=== PATIENT | male | born 1970 | race Caucasian/White ===

== ENCOUNTER 2019-01-28 11:25 | Emergency (ER) | payer OTHER ==
[2019-01-28] MEDS ORDERED: SODIUM CHLORIDE 0.9% 1,000 ML IV STA (11:56)
--- NOTE | 2019-01-28 12:05 | ED ---
Abdominal Pain HPI - General Chief Complaint: Abdominal Pain Stated Complaint: diarrhea Time Seen by Provider: 01/28/19 11:37 Source: patient Mode of arrival: ambulatory Limitations: no limitations - History of Present Illness Initial Comments: Patient is a 48-year-old male presents emergency Department with diarrhea for 3 days. Patient reports the diarrhea started after eating steak which was cooked rare to medium rare. Patient reports midline dull suprapubic pain, that is colicky in nature and rates it at 2-3. Patient states the pain does not radiate anywhere. Patient reports that couple hours after eating the same pain becomes an 8 and Sharp. Patient reports when the pain becomes an 8 he needs to go to the bathroom and has diarrhea. Patient reports after the episode of diarrhea the pain subsides. Patient denies nausea, vomiting, dysuria, increased urgency or frequency. Patient denies hematochezia, melena or hematuria. Patient denies fever, shortness of breath, chest pain and chest tightness or headaches. Patient reports mild low back pain but states that is chronic. Patient denies flank pain. Patient denies taking any medication to alleviate the symptoms. Patient denies testicular pain, penile pain or discharge. - Related Data Previous Rx's Medication Instructions Recorded Loperamide [Imodium] 2 mg PO BID #15 capsule 01/28/19 Allergies Allergy/AdvReac Type Severity Reaction Status Date / Time No Known Allergies Allergy Verified 01/28/19 11:33 Review of Systems ROS Statement: Those systems with pertinent positive or pertinent negative responses have been documented in the HPI. ROS Other: All systems not noted in ROS Statement are negative. Past Medical History Past Medical History: Thyroid Disorder History of Any Multi-Drug Resistant Organisms: None Reported Past Surgical History: No Surgical Hx Reported Past Psychological History: No Psychological Hx Reported Smoking Status: Never smoker Past Alcohol Use History: Occasional Past Drug Use History: Marijuana General Exam - General Exam Comments Initial Comments: General: Well-developed well-nourished distress HEENT: Normocephalic/atraumatic, PERLL, EAC no erythema, no exudates, TM clear, no cervical lymph nodes Neck: Supple, nontender, trachea midline Chest/Lungs: Normal respirations, no signs of respiratory distress clear to auscultation bilaterally no wheezes, rales, rhonchi Cardiac: Regular rate and rhythm, normal S1-S2, no murmurs rubs or gallops Abdomen/GI: Soft nontender, bowel sounds equal or quadrant x4, no guarding, no rebound no CVA tenderness, negative McBurney point tenderness negative Jaramillo sign, negative Rovsing or psoas sign, mid suprapubic pain exacerbated with palpation. Musculoskeletal: Nontender, full range of motion, no edema, strength equal bilaterally Skin: Warmth, no rashes or lesions, no cyanosis or diaphoresis Neurologic: AAO x 3, CN 2-12 intact, Psychiatric: Mood and affect normal, judgment normal Limitations: no limitations Course Vital Signs 01/28/19 11:31 Temperature 98.2 F Pulse Rate 80 Respiratory 20 Rate Blood Pressure 143/89 O2 Sat by Pulse 97 Oximetry Medical Decision Making - Medical Decision Making Patient is a 48-year-old male presents emergency department for 3 days of diarrhea. X-ray is suggestive of nonspecific gas pattern. Patient was given 1 L of fluids. Patient will prescribe Lomotil. Based on history and physical examination I suspect the patient to have colitis and no antibiotics are necessary at this moment because it has been only 3 days. Labs are unremarkable except patient appears to be hyperglycemic. Patient has not been diagnosed with diabetes but does have family history of it. Patient reports that he had popped a few times throughout the day before coming to the emergency department. Patient advised to follow-up with the on-call family physicians, [facility] and attempt to obtain Medicare. Strict return parameters were thoroughly discussed with patient and were understandable and agreement. Patient advised to follow a BRAT diet. Patient advised not to eat late at night or spicy food. Case discussed with Dr. Decker who is in agreement with the treatment plan. - Lab Data Result diagrams: 01/28/19 12:06 01/28/19 12:06 Lab Results 01/28/19 01/28/19 01/28/19 Range/Units 12:06 12:06 12:17 WBC 8.4 (3.8-10.6) k/uL RBC 5.82 (4.30-5.90) m/uL Hgb 15.9 (13.0-17.5) gm/dL Hct 46.8 (39.0-53.0) % MCV 80.5 (80.0-100.0) fL MCH 27.3 (25.0-35.0) pg MCHC 33.9 (31.0-37.0) g/dL RDW 14.4 (11.5-15.5) % Plt Count 279 (150-450) k/uL Neutrophils % 63 % Lymphocytes % 28 % Monocytes % 6 % Eosinophils % 1 % Basophils % 0 % Neutrophils # 5.3 (1.3-7.7) k/uL Lymphocytes # 2.4 (1.0-4.8) k/uL Monocytes # 0.5 (0-1.0) k/uL Eosinophils # 0.1 (0-0.7) k/uL Basophils # 0.0 (0-0.2) k/uL Sodium 138 (137-145) mmol/L Potassium 4.4 (3.5-5.1) mmol/L Chloride 107 (98-107) mmol/L Carbon Dioxide 20 L (22-30) mmol/L Anion Gap 11 mmol/L BUN 8 L (9-20) mg/dL Creatinine 0.54 L (0.66-1.25) mg/dL Est GFR (CKD-EPI)AfAm >90 (>60 ml/min/1.73 sqM) Est GFR (CKD-EPI)NonAf >90 (>60 ml/min/1.73 sqM) Glucose 296 H (74-99) mg/dL Calcium 9.5 (8.4-10.2) mg/dL Total Bilirubin 0.8 (0.2-1.3) mg/dL AST 22 (17-59) U/L ALT 37 (21-72) U/L Alkaline Phosphatase 74 (38-126) U/L Total Protein 7.2 (6.3-8.2) g/dL Albumin 4.3 (3.5-5.0) g/dL Amylase 35 (30-110) U/L Lipase 89 (23-300) U/L Urine Color Yellow Urine Appearance Clear (Clear) Urine pH 5.0 (5.0-8.0) Ur Specific Adrian 1.030 (1.001-1.035) Urine Protein Trace H (Negative) Urine Glucose (UA) 4+ H (Negative) Urine Ketones Negative (Negative) Urine Blood Negative (Negative) Urine Nitrite Negative (Negative) Urine Bilirubin Negative (Negative) Urine Urobilinogen <2.0 (<2.0) mg/dL Ur Leukocyte Esterase Negative (Negative) Disposition Clinical Impression: Diarrhea Disposition: HOME SELF-CARE Condition: Stable Instructions (If sedation given, give patient instructions): Loperamide (By mouth), Colitis (ED) Additional Instructions: Please take prescribed medication as directed. Eat a BRAT diet. Please follow up with primary care. Please return to emergency department if symptoms worsen. Is patient prescribed a controlled substance at d/c from ED?: No Referrals: None,Stated [Primary Care Provider] - 1-2 days Judit Durham MD [STAFF PHYSICIAN] - 1-2 days Roberto Kennedy MD [Medical Doctor] - 1-2 days Time of Disposition: 13:26
--- NOTE | 2019-01-28 12:31 | XR ---
EXAMINATION TYPE: XR KUB DATE OF EXAM: 01/28/2019 COMPARISON: NONE HISTORY: Pain TECHNIQUE: One view abdominal series FINDINGS: The osseous structures are intact. The bowel gas pattern is nonspecific. Lung bases are clear. Hype rtrophic change of the vertebral column. Calcification the pelvis likely vascular. IMPRESSION: 1. Nonspecific abdomen.
[2019-01-28 12:35] LABS: ALT 37 U/L (21-72); AST 22 U/L (17-59); African American GFR (CKD) >90 (>60 ml/min/1.73 sqM); Albumin 4.3 g/dL (3.5-5.0); Alkaline Phosphatase 74 U/L (38-126); Amylase 35 U/L (30-110); Anion Gap 11 mmol/L; Blood Urea Nitrogen 8 mg/dL (9-20); Calcium 9.5 mg/dL (8.4-10.2); Carbon Dioxide 20 mmol/L (22-30); Chloride 107 mmol/L (98-107); Glucose 296 mg/dL (74-99); Lipase 89 U/L (23-300); Potassium 4.4 mmol/L (3.5-5.1); Sodium 138 mmol/L (137-145); Total Bilirubin 0.8 mg/dL (0.2-1.3); Total Protein 7.2 g/dL (6.3-8.2)
[2019-01-28 12:37] LABS: Basophils % (A) 0 %; Eosinophils # (A) 0.1 k/uL (0-0.7); Eosinophils % (A) 1 %; HCT 46.8 % (39.0-53.0); HGB 15.9 gm/dL (13.0-17.5); Lymphocytes # (A) 2.4 k/uL (1.0-4.8); Lymphocytes % (A) 28 %; MCH 27.3 pg (25.0-35.0); MCHC 33.9 g/dL (31.0-37.0); MCV 80.5 fL (80.0-100.0); Mean Platelet Volume 7.6; Monocytes # (A) 0.5 k/uL (0-1.0); Monocytes % (A) 6 %; Neutrophils # (A) 5.3 k/uL (1.3-7.7); Neutrophils % (A) 63 %; Platelet Count 279 k/uL (150-450); RBC 5.82 m/uL (4.30-5.90); RDW 14.4 % (11.5-15.5); WBC 8.4 k/uL (3.8-10.6)
[2019-01-28 12:43] LABS: Appearance,Urine Clear (Clear); Bilirubin,Urine Negative (Negative); Blood,Urine Negative (Negative); Color,Urine Yellow; Glucose,Urine (UA) 4+ (Negative); Ketones,Urine Negative (Negative); Leukocyte Esterase,Urine Negative (Negative); Nitrite,Urine Negative (Negative); Protein,Urine Trace (Negative); Urobilinogen,Urine <2.0 mg/dL (<2.0)
[2019-01-28 14:18] VITALS: BP 137/87; PULSE 68; RESP 18; TEMP 98.4
== END 2019-01-28 14:18 | disposition home or self-care (01) ==
LOC: EC 11:25
DX: R19.7 Diarrhea, unspecified (principal); R10.30 Lower abdominal pain, unspecified; M54.5 Low back pain; R73.9 Hyperglycemia, unspecified
CPT/HCPCS: 36415; 74018; 80053; 81003; 82150; 83690; 85025; 96360; 96361; 99284

== ENCOUNTER 2020-12-24 06:32 | Day surgery (SDC) | payer OTHER ==
[2020-12-19 14:58] VITALS: BMI 39.5
[~2020-12-24 06:32] MED LIST: LACTATED RINGERS 1,000 ML IV SCH
[2020-12-24 07:08] VITALS: RESP 16; TEMP 96.8
[2020-12-24 07:08] LABS: Glucose,Whole Blood 172 mg/dL (75-99)
[2020-12-24] MEDS ORDERED: PHENYLEPHRINE-0.9% NACL SYG 1,000 MCG/10 ML SYRINGE ONE (07:41)
[2020-12-24] MEDS ORDERED: PROPOFOL 10 MG/ML 20 ML VIAL IV ONE (07:41)
--- NOTE | 2020-12-24 08:14 | P.PCN ---
Date of Procedure: 12/24/20 Description of Procedure: BRIEF HISTORY: Patient is a 50-year-old male presenting for outpatient colonoscopy for screening for malignant neoplasm of the colon. No prior colonoscopies. No abdominal pain or blood per rectum but he does report a large amount of gas which began after he was initiated on metformin therapy and is continued after the medication was discontinued. PROCEDURE PERFORMED: Colonoscopy with polypectomy. PREOPERATIVE DIAGNOSIS: Screening for malignant neoplasm of the colon, no prior colonoscopy. ESTIMATED BLOOD LOSS: Minimal. IV sedation per Anesthesia. PROCEDURE: After informed consent was obtained, the patient, was brought into the endoscopy unit. IV sedation was administered by Anesthesia under continuous monitoring. Digital rectal examination was normal. Initially the Olympus CF-190 flexible video colonoscope was then inserted in the rectum, gradually advanced into the cecum without any difficulty. Careful examination was performed as the scope was gradually being withdrawn. Ileocecal valve and the appendiceal orifice were visualized and appeared normal. Prep was good. Mucosa of the cecum, ascending colon, transverse colon, descending colon, sigmoid colon, and rectum appeared normal. Cold snare polypectomy of sessile polyps measuring 11 mm in size from the ileocecal valve and 7 mm in size from the ascending colon. Diminutive polyps removed with cold forcep polypectomy from the splenic flexure 2 and rectum. Retroflexion was performed in the rectum and no lesions were seen, low- grade internal hemorrhoids. The patient tolerated the procedure well. IMPRESSION: Cold snare polypectomy of polyps from the ileocecal valve and ascending colon. 3 diminutive polyps removed with cold forcep polypectomy from the rectum and splenic flexure 2. Internal hemorrhoids. RECOMMENDATIONS: Findings of this examination were discussed with the patient and his family. Okay to resume diet. Okay to resume medication. Await pathology from polypectomies. Recommend repeat colonoscopy in 3 years pending pathology from polypectomies.
[2020-12-24 08:35] VITALS: BP 149/76; PULSE 68
== END 2020-12-24 09:03 | disposition home or self-care (01) ==
LOC: ORWHC2ENDO 06:32
PROVIDERS: ATTEND Internal Medicine
DX: Z12.11 Encounter for screening for malignant neoplasm of colon (principal); D12.2 Benign neoplasm of ascending colon; D12.0 Benign neoplasm of cecum; D12.3 Benign neoplasm of transverse colon; D12.8 Benign neoplasm of rectum; I10 Essential (primary) hypertension; E78.5 Hyperlipidemia, unspecified; E11.9 Type 2 diabetes mellitus without complications; E07.9 Disorder of thyroid, unspecified; K21.9 Gastro-esophageal reflux disease without esophagitis; Z79.84 Long term (current) use of oral hypoglycemic drugs; Z79.890 Hormone replacement therapy; Z79.899 Other long term (current) drug therapy
CPT/HCPCS: 45380; 45385; J2370; J2704; 88305

== ENCOUNTER 2021-05-24 11:01 | Emergency (ER) | payer OTHER ==
[2021-05-24 11:09] VITALS: BP 133/81; PULSE 82; RESP 18; TEMP 98.8
--- NOTE | 2021-05-24 11:41 | ED ---
URI HPI - General Chief Complaint: Upper Respiratory Infection Stated Complaint: Cough,Lower Back Pain Time Seen by Provider: 05/24/21 11:13 Source: patient, RN notes reviewed Mode of arrival: ambulatory Limitations: no limitations - History of Present Illness Initial Comments: Patient is a 51-year-old male with history of diabetes, hypertension, presenting to emergency Department with complaints of a cough, headache, body aches and lower back pain that started yesterday. He states this seemed to start her out of the blue. He denies any chest pain or shortness of breath, he has been taking NyQuil and DayQuil for a cough which does seem to help a little bit. He did take some Motrin this morning as he usually takes it for body aches. He denies history of asthma or COPD, is a nonsmoker. He denies any recent sick contacts. He has been fully vaccinated against Covid. He has no further complaints. His vitals are stable upon arrival. - Related Data Home Medications Medication Instructions Recorded Confirmed Aspirin [Adult Low Dose Aspirin EC] 81 mg PO DAILY 12/19/20 12/19/20 Empagliflozin [Jardiance] 25 mg PO DAILY 12/19/20 12/24/20 Ibuprofen [Motrin] 800 mg PO BID 12/19/20 12/24/20 Levothyroxine Sodium [Synthroid] 175 mcg PO DAILY 12/19/20 12/24/20 Omeprazole 20 mg PO DAILY 12/19/20 12/24/20 Rosuvastatin [Crestor] 10 mg PO HS 12/19/20 12/24/20 glipiZIDE [Glucotrol] 5 mg PO AC-BID 12/19/20 12/24/20 lisinopriL [Zestril] 10 mg PO DAILY 12/19/20 12/24/20 Previous Rx's Medication Instructions Recorded predniSONE [Deltasone] 20 mg PO BID 5 Days #10 tab 05/24/21 Allergies Allergy/AdvReac Type Severity Reaction Status Date / Time No Known Allergies Allergy Verified 05/24/21 11:09 Review of Systems ROS Statement: Those systems with pertinent positive or pertinent negative responses have been documented in the HPI. ROS Other: All systems not noted in ROS Statement are negative. Past Medical History Past Medical History: Diabetes Mellitus, GERD/Reflux, Hyperlipidemia, Hypertension, Thyroid Disorder History of Any Multi-Drug Resistant Organisms: None Reported Past Surgical History: Orthopedic Surgery Additional Past Surgical History / Comment(s): LT THUMB REPAIR/REATTACHMENT. RECONSTRUCTION LT ANKLE TENDONS. RT KNUCKLE REMOVED R/T INJURY Past Anesthesia/Blood Transfusion Reactions: No Reported Reaction Past Psychological History: No Psychological Hx Reported Smoking Status: Never smoker Past Alcohol Use History: None Reported Past Drug Use History: Marijuana - Past Family History Mother Family Medical History: No Reported History General Exam - General Exam Comments Initial Comments: GENERAL: Patient is well-developed and well-nourished. Patient is nontoxic and in no acute distress. HEAD: Atraumatic, normocephalic. EYES: Pupils equal round and reactive to light, extraocular movements intact, sclera anicteric, conjunctiva are normal. Eyelids were unremarkable. ENT: Nares patent, oropharynx clear without exudates. Moist mucous membranes. NECK: Normal range of motion, supple without lymphadenopathy or JVD. LUNGS: Unlabored respirations. Breath sounds clear to auscultation bilaterally and equal. No wheezes rales or rhonchi. HEART: Regular rate and rhythm without murmurs, rubs or gallops. ABDOMEN: Soft, nontender, normoactive bowel sounds. No guarding, no rebound. No masses appreciated. : Deferred MUSCULOSKELETAL: Normal extremities with adequate strength and normal range of motion, no pitting or edema. No clubbing or cyanosis. NEUROLOGICAL: Patient is alert and oriented x 3. SKIN: Warm, Dry, normal turgor, no rashes or lesions noted. Limitations: no limitations Course Vital Signs 05/24/21 05/24/21 11:06 11:36 Temperature 98.8 F Pulse Rate 82 Respiratory 18 18 Rate Blood Pressure 133/81 O2 Sat by Pulse 98 Oximetry Medical Decision Making - Medical Decision Making Patient is a 51-year-old male with history of diabetes, hypertension, presenting with viral type symptoms since last night. Stable, he has had Covid vaccine. Covid test is negative today. Chest x-ray shows subsegmental changes of right upper lobe, correlate for early infiltrate, follow-up recommended. Discussed these findings with the patient. Old put him on a few days of steroid, recommend following up with his primary care. He is agreeable to this and is stable for discharge. He requested a work note for today. - Lab Data Lab Results 05/24/21 Range/Units 11:34 Coronavirus (PCR) Not Detected (Not Detectd) Disposition Clinical Impression: Viral upper respiratory illness Disposition: HOME SELF-CARE Condition: Stable Instructions (If sedation given, give patient instructions): Upper Respiratory Infection (ED) Additional Instructions: Please return to the Emergency Department if symptoms worsen or any other conc erns. Take steroids as prescribed. Follow-up with your primary care. Prescriptions: predniSONE [Deltasone] 20 mg PO BID 5 Days #10 tab Is patient prescribed a controlled substance at d/c from ED?: No Referrals: Orquidea Whatley MD [Primary Care Provider] - 1-2 days Time of Disposition: 12:39
--- NOTE | 2021-05-24 11:50 | XR ---
EXAMINATION TYPE: XR chest 2V DATE OF EXAM: 05/24/2021 COMPARISON: NONE TECHNIQUE: PA and lateral views submitted. HISTORY: Cough FINDINGS: The lungs are clear and there is no pneumothorax, pleural effusion, or focal pneumonia. Subsegmenta l changes right upper lobe. Hypertrophic and degenerative change of the spine. Mild hyperinflation co rrelate for COPD. IMPRESSION: 1. Subsegmental changes right upper lobe correlate for early infiltrate. Follow-up to resolution to e xclude underlying neoplasm..
== END 2021-05-24 12:58 | disposition home or self-care (01) ==
LOC: EC 11:01
DX: J06.9 Acute upper respiratory infection, unspecified (principal); E11.9 Type 2 diabetes mellitus without complications; E78.5 Hyperlipidemia, unspecified; I10 Essential (primary) hypertension; K21.9 Gastro-esophageal reflux disease without esophagitis; F12.90 Cannabis use, unspecified, uncomplicated; Z79.82 Long term (current) use of aspirin; Z79.84 Long term (current) use of oral hypoglycemic drugs; Z79.899 Other long term (current) drug therapy
CPT/HCPCS: 71046; 87635; 99284

== ENCOUNTER → 2022-03-10 | Outpatient (CLI) | payer OTHER ==
--- NOTE | 2022-03-11 12:13 | MR ---
EXAMINATION TYPE: MR lumbar spine wo con DATE OF EXAM: 03/10/2022 COMPARISON: Radiograph 02/17/2022 HISTORY: 51-year-old male M54.50, LOW BACK PAIN, UNSPECIFIED, NUMBNESS RADIATING ALONG RIGHT LEG TECHNIQUE: Multiplanar, multisequence images of the lumbar spine were acquired without IV contrast. FINDINGS: There is DISH within the lower thoracic spine extending down to the L3 level. Mild to moderate degenerative disc disease L4-L5 with desiccated, mildly narrowed, and bulging disc. Tiny posterior annular fissure is noted. Minimal intervertebral disc desiccation L3-L4 and mild disc bulging. Additional tiny posterior annular fissures at L5-S1. Hypertrophic facet arthropathy mid to lower lumbar spine, greatest at L4-L5 with a couple posteriorly directed synovial cyst on the right measuring up to 8 mm. Conus medullaris is normal. Some fatty Modic type II endplate changes anteriorly at L1-L2. Otherwise, no suspicious bone marrow p lacement. Alignment is maintained and vertebral body heights are preserved. At L4-L5, posterior disc bulge indents the ventral thecal sac but does not contribute any significant spinal canal stenosis. Otherwise, no large focal disc herniation or significant spinal canal stenos is. Also at L4-L5, changes result in mild right and minimal inferior left neural foraminal stenoses. Late ral disc bulges may abut the bilateral extraforaminal L4 nerve roots on both sides. Otherwise, no significant neuroforaminal stenosis is seen. No prevertebral or paravertebral soft tissue mammography. IMPRESSION: 1. DISH in the visualized lower thoracic spine extending down to the L3 level. No vertebral compressi on collapse or malalignment. 2. Mild to moderate degenerative disc disease L4-L5 and mild at L3-L4. Hypertrophic facet arthropathy mid to lower lumbar spine, greatest at L4-L5 with some associated synovial cysts on the right measur ing up to 8 mm. 3. Tiny annular fissure is at L4-L5 and L5-S1. 4. Disc bulge indents the ventral thecal sac at L4-L5 but without any significant spinal canal stenos is. 5. Also at L4-L5, there is mild right neuroforaminal stenosis. Lateral disc bulges at this level may abut the bilateral extraforaminal L4 nerve roots on both sides.
== END | disposition home or self-care (01) ==
LOC: RADMRIMAIN 10:43
PROVIDERS: ATTEND Orthopaedic Surgery
DX: M47.26 Other spondylosis with radiculopathy, lumbar region (principal); M48.061 Spinal stenosis, lumbar region without neurogenic claudication
CPT/HCPCS: 72148

== ENCOUNTER 2022-12-26 13:14 | Emergency (ER) | payer OTHER ==
[2022-12-26 13:33] LABS: Glucose,Whole Blood 109 mg/dL (70-110)
[2022-12-26] MEDS ORDERED: ONDANSETRON 4 MG/2 ML VIAL IVP STA (15:30)
[2022-12-26] MEDS ORDERED: KETOROLAC 15 MG/ML 1 ML VIAL IVP STA (15:30)
[2022-12-26] MEDS ORDERED: SODIUM CHLORIDE 0.9% 1,000 ML IV STA (15:30)
[2022-12-26] MEDS ORDERED: DICYCLOMINE 10 MG/ML 2 ML AMP IM STA (15:30)
--- NOTE | 2022-12-26 15:47 | ED ---
Dizziness HPI - General Chief Complaint: Recheck/Abnormal Lab/Rx Stated Complaint: Nausea,diahrrea, weakness Time Seen by Provider: 12/26/22 14:48 Source: patient, RN notes reviewed Mode of arrival: ambulatory Limitations: no limitations - History of Present Illness Initial Comments: This is a 52-year-old male who presents to the emergency department for nausea, dizziness, and weakness. States that earlier in the week, he had what he believes to be a steroid injection in his left hand to manage his chronic pain. 2 days ago, he saw pain management and was started on a muscle relaxant for his back pain. Symptoms started shortly after starting the muscle relaxant. States that he slept for most of the day yesterday before starting to develop the dizziness and nausea. He has never been on a muscle relaxant before. Reports associated diarrhea and abdominal cramping. After the patient had been here for a couple of hours and the pharmacy student reviewed his medications with him, we found out that this was not a muscle relaxant he was prescribed, but Toradol. Denies any fevers, chills, sore throat, cough, dyspnea, chest pain, palpi tations, or back pain. MD Complaint: dizziness - Related Data Home Medications Medication Instructions Recorded Confirmed Aspirin [Adult Low Dose Aspirin EC] 81 mg PO HS 12/19/20 12/26/22 Empagliflozin [Jardiance] 25 mg PO DAILY 12/19/20 12/26/22 Levothyroxine Sodium [Synthroid] 175 mcg PO DAILY 12/19/20 12/26/22 Omeprazole 20 mg PO DAILY 12/19/20 12/26/22 Rosuvastatin [Crestor] 10 mg PO HS 12/19/20 12/26/22 lisinopriL [Zestril] 10 mg PO HS 12/19/20 12/26/22 Ergocalciferol (Vitamin D2) 1,250 mcg PO MO 12/26/22 12/26/22 [Drisdol (50,000 Iu)] Ketorolac [Toradol] 10 mg PO Q6HR PRN 12/26/22 12/26/22 Semaglutide [Ozempic] 1 mg SQ MO 12/26/22 12/26/22 Previous Rx's Medication Instructions Recorded Diclofenac Sodium [Voltaren] 75 mg PO BID #20 tab 12/26/22 Metoclopramide [Reglan] 10 mg PO Q6H PRN #20 tab 12/26/22 Ondansetron Odt [Zofran Odt] 4 mg PO Q8HR PRN #15 tab 12/26/22 Allergies Allergy/AdvReac Type Severity Reaction Status Date / Time No Known Allergies Allergy Verified 12/26/22 16:24 Review of Systems ROS Statement: Those systems with pertinent positive or pertinent negative responses have been documented in the HPI. ROS Other: All systems not noted in ROS Statement are negative. Past Medical History Past Medical History: Diabetes Mellitus, GERD/Reflux, Hyperlipidemia, Hypertension, Thyroid Disorder History of Any Multi-Drug Resistant Organisms: None Reported Past Surgical History: Orthopedic Surgery Additional Past Surgical History / Comment(s): LT THUMB REPAIR/REATTACHMENT. RECONSTRUCTION LT ANKLE TENDONS. RT KNUCKLE REMOVED R/T INJURY Past Anesthesia/Blood Transfusion Reactions: No Reported Reaction Past Psychological History: No Psychological Hx Reported Smoking Status: Never smoker Past Alcohol Use History: None Reported Past Drug Use History: Marijuana - Past Family History Mother Family Medical History: No Reported History General Exam Limitations: no limitations General appearance: alert, in no apparent distress Head exam: Present: atraumatic, normocephalic, normal inspection Eye exam: Present: normal appearance, PERRL, EOMI. Absent: scleral icterus, conjunctival injection, periorbital swelling Respiratory exam: Present: normal lung sounds bilaterally. Absent: respiratory distress, wheezes, rales, rhonchi, stridor Cardiovascular Exam: Present: regular rate, normal rhythm, normal heart sounds. Absent: systolic murmur, diastolic murmur, rubs, gallop, clicks GI/Abdominal exam: Present: soft, normal bowel sounds. Absent: distended, tenderness, guarding, rebound, rigid Neurological exam: Present: alert, oriented X3, CN II-XII intact Psychiatric exam: Present: normal affect, normal mood Skin exam: Present: warm, dry, intact, normal color. Absent: rash Course Vital Signs 12/26/22 13:21 Temperature 98.3 F Pulse Rate 87 Respiratory 20 Rate Blood Pressure 128/84 O2 Sat by Pulse 95 Oximetry Medical Decision Making - Medical Decision Making This is a 52-year-old male who presents to the emergency department for dizziness, nausea, vomiting, and diarrhea. Was pt. sent in by a medical professional or institution? @ -No Did you speak to anyone other than the patient for history? @ -No Did you review nursing and triage notes? @ -Yes, and I agree, it is accurate with regards to the patient's symptoms. Were old charts reviewed? @ -No Differential Diagnosis? @ -Differential Dizziness: Benign paroxysmal positional Vertigo, Menieres disease, otitis media, acoustic neuroma, vertebrobasilar insufficiency, cerebellar stroke, encephalitis, hypovolemic, arrhythmia, coronary artery syndrome, anemia, this is not meant to be an all-inclusive list EKG interpreted by me (3pts min.)? @ -Not obtained X-rays interpreted by me (1pt min.)? @ -Not obtained CT interpreted by me (1pt min.)? @ -Not obtained U/S interpreted by me (1pt. min.)? @ -Not obtained What testing was considered but not performed? (CT, X-rays, U/S, labs)? Why? @ -None What meds were considered but not given? Why? @ -None Did you discuss the management of the patient with other professionals? @ -No Did you reconcile home meds? @ -No Was smoking cessation discussed for >3mins.? @ -No Was critical care preformed (if so, how long)? @ -No Were there social determinants of health that impacted care today? How? (Homelessness, low income, unemployed, alcoholism, drug addiction, transportation, low edu. Level, literacy, decrease access to med. care, long term, rehab)? @ -No Was there de-escalation of care discussed even if they declined? (Discuss DNR or withdrawal of care, Hospice)? @ -No What co-morbidities impacted this encounter? (DM, HTN, Smoking, COPD, CAD, Cancer, CVA, Hep., AIDS, mental health diagnosis, sleep apnea, morbid obesity)? @ -DM, HTN, HLD, thyroid disorder, chronic back pain Was patient admitted / discharged? @ -Discharged. Lab work obtained and found to be nonactionable. TSH is elevated, however free T4 was within normal limits. Ketones in the urine are consistent with the patient's history of dehydration with the diarrhea and nausea. He was initially given IV fluids, Zofran, and Toradol and essentially only had improvement in the nausea. He continued to complain of dizziness and headaches. He was then given Decadron, Reglan, and Benadryl. Unfortunately, we had given him Toradol before it was discovered that the Toradol was the new medication he was already prescribed. However, after receiving the Decadron, Benadryl, and Reglan, he did feel much better in terms of the headache and nausea. He was able to drink water without difficulty and felt stable for discharge home. He was instructed to discontinue the Toradol, as it may be the culprit. He was instead given a prescription for diclofenac, and I reminded him to only take this with Tylenol and avoid taking it with any other over-the- counter anti-inflammatories such as ibuprofen. Rx for both Reglan and Zofran provided as well with dosing instructions reviewed for further management of the nausea. Recommended [id number] Imodium for the diarrhea and he is instructed to slowly advance his diet as tolerated and remain well-hydrated. Undiagnosed new problem with uncertain prognosis? @ -None Drug Therapy requiring intensive monitoring for toxicity (Heparin, Nitro, Insulin, Cardizem)? @ -None Were any procedures done? @ -None Diagnosis/symptom? @ -Headache, N/V/D Acute, or Chronic, or Acute on Chronic? @ -Acute Uncomplicated (without systemic symptoms) or Complicated (systemic symptoms)? @ -Uncomplicated Side effects of treatment? @ -None Exacerbation, Progression, or Severe Exacerbation] @ -Not applicable Poses a threat to life or bodily function? @ -No Return precautions reviewed in depth, the patient is instructed to return to the emergency department with any new, worsening, or concerning symptoms. Patient verbalized understanding. This case was discussed in detail with the attending ED physician, Dr. Blount. Presentation, findings, and treatment plan discussed in detail as well. - Lab Data Result diagrams: 12/26/22 15:55 12/26/22 15:55 Lab Results 12/26/22 12/26/22 12/26/22 Range/Units 13:31 15:55 15:55 WBC 8.8 (3.8-10.6) k/uL RBC 5.87 (4.30-5.90) m/uL Hgb 16.8 (13.0-17.5) gm/dL Hct 49.0 (39.0-53.0) % MCV 83.5 (80.0-100.0) fL MCH 28.7 (25.0-35.0) pg MCHC 34.4 (31.0-37.0) g/dL RDW 13.1 (11.5-15.5) % Plt Count 254 (150-450) k/uL MPV 7.3 Neutrophils % 62 % Lymphocytes % 28 % Monocytes % 7 % Eosinophils % 1 % Basophils % 0 % Neutrophils # 5.5 (1.3-7.7) k/uL Lymphocytes # 2.5 (1.0-4.8) k/uL Monocytes # 0.6 (0-1.0) k/uL Eosinophils # 0.1 (0-0.7) k/uL Basophils # 0.0 (0-0.2) k/uL Sodium (137-145) mmol/L Potassium (3.5-5.1) mmol/L Chloride (98-107) mmol/L Carbon Dioxide (22-30) mmol/L Anion Gap mmol/L BUN (9-20) mg/dL Creatinine (0.66-1.25) mg/dL Est GFR (CKD-EPI)AfAm (>60 ml/min/1.73 sqM) Est GFR (CKD-EPI)NonAf (>60 ml/min/1.73 sqM) Glucose (74-99) mg/dL POC Glucose (mg/dL) 109 (70-110) mg/dL POC Glu [employer] ID Davi Bowser Calcium (8.4-10.2) mg/dL Total Bilirubin (0.2-1.3) mg/dL AST (17-59) U/L ALT (4-49) U/L Alkaline Phosphatase (38-126) U/L Troponin I (0.000-0.034) ng/mL Total Protein (6.3-8.2) g/dL Albumin (3.5-5.0) g/dL TSH (0.465-4.680) mIU/L Free T4 (0.78-2.19) ng/dL Urine Color Light Yellow Urine Appearance Clear (Clear) Urine pH 5.5 (5.0-8.0) Ur Specific [place] 1.040 H (1.001-1.035) Urine Protein Negative (Negative) Urine Glucose (UA) 4+ H (Negative) Urine Ketones 3+ H (Negative) Urine Blood Negative (Negative) Urine Nitrite Negative (Negative) Urine Bilirubin Negative (Negative) Urine Urobilinogen <2.0 (<2.0) mg/dL Ur Leukocyte Esterase Negative (Negative) 12/26/22 12/26/22 Range/Units 15:55 15:55 WBC (3.8-10.6) k/uL RBC (4.30-5.90) m/uL Hgb (13.0-17.5) gm/dL Hct (39.0-53.0) % MCV (80.0-100.0) fL MCH (25.0-35.0) pg MCHC (31.0-37.0) g/dL RDW (11.5-15.5) % Plt Count (150-450) k/uL MPV Neutrophils % % Lymphocytes % % Monocytes % % Eosinophils % % Basophils % % Neutrophils # (1.3-7.7) k/uL Lymphocytes # (1.0-4.8) k/uL Monocytes # (0-1.0) k/uL Eosinophils # (0-0.7) k/uL Basophils # (0-0.2) k/uL Sodium 142 (137-145) mmol/L Potassium 4.0 (3.5-5.1) mmol/L Chloride 109 H (98-107) mmol/L Carbon Dioxide 18 L (22-30) mmol/L Anion Gap 15 mmol/L BUN 15 (9-20) mg/dL Creatinine 0.64 L (0.66-1.25) mg/dL Est GFR (CKD-EPI)AfAm >90 (>60 ml/min/1.73 sqM) Est GFR (CKD-EPI)NonAf >90 (>60 ml/min/1.73 sqM) Glucose 105 H (74-99) mg/dL POC Glucose (mg/dL) (70-110) mg/dL POC Glu [employer] ID Calcium 9.1 (8.4-10.2) mg/dL Total Bilirubin 0.5 (0.2-1.3) mg/dL AST 21 (17-59) U/L ALT 29 (4-49) U/L Alkaline Phosphatase 81 (38-126) U/L Troponin I <0.012 (0.000-0.034) ng/mL Total Protein 7.3 (6.3-8.2) g/dL Albumin 4.4 (3.5-5.0) g/dL TSH 17.500 H (0.465-4.680) mIU/L Free T4 1.30 (0.78-2.19) ng/dL Urine Color Urine Appearance (Clear) Urine pH (5.0-8.0) Ur Specific [place] (1.001-1.035) Urine Protein (Negative) Urine Glucose (UA) (Negative) Urine Ketones (Negative) Urine Blood (Negative) Urine Nitrite (Negative) Urine Bilirubin (Negative) Urine Urobilinogen (<2.0) mg/dL Ur Leukocyte Esterase (Negative) Disposition Clinical Impression: Nausea vomiting and diarrhea, Headache Disposition: HOME SELF-CARE Instructions (If sedation given, give patient instructions): Acute Headache (ED), Acute Nausea and Vomiting (ED), Acute Diarrhea (ED) Additional Instructions: Return to the emergency department with any new, worsening, or concerning symptoms. Stop taking the Toradol, as that may be the cause of your symptoms. Start taking the diclofenac instead to treat your pain. This can be taken twice daily. Try taking it with food or an antacid to reduce the risk of abdominal upset. Do not take it with any other anti-inflammatories such as ibuprofen. You may take it with Tylenol. Take the Zofran up to every 8 hours and the Reglan up to every 6 hours if you need both medications to manage the nausea. You can take the Lomotil provided here or use [id number] Imodium to help with the diarrhea. Make sure that you slowly advance your diet as tolerated and remain well-hydrated. Follow up with your primary care provider in 1-2 days. Prescriptions: Metoclopramide [Reglan] 10 mg PO Q6H PRN #20 tab PRN Reason: Nausea And Vomiting Diclofenac Sodium [Voltaren] 75 mg PO BID #20 tab Ondansetron Odt [Zofran Odt] 4 mg PO Q8HR PRN #15 tab PRN Reason: Nausea And Vomiting Is patient prescribed a controlled substance at d/c from ED?: No Referrals: Orquidea Whatley MD [Primary Care Provider] - 1-2 days
[2022-12-26 16:19] LABS: Basophils % (A) 0 %; Eosinophils # (A) 0.1 k/uL (0-0.7); Eosinophils % (A) 1 %; HGB 16.8 gm/dL (13.0-17.5); Lymphocytes # (A) 2.5 k/uL (1.0-4.8); Lymphocytes % (A) 28 %; MCH 28.7 pg (25.0-35.0); MCHC 34.4 g/dL (31.0-37.0); MCV 83.5 fL (80.0-100.0); Mean Platelet Volume 7.3; Monocytes # (A) 0.6 k/uL (0-1.0); Monocytes % (A) 7 %; Neutrophils # (A) 5.5 k/uL (1.3-7.7); Neutrophils % (A) 62 %; Platelet Count 254 k/uL (150-450); RBC 5.87 m/uL (4.30-5.90); RDW 13.1 % (11.5-15.5); WBC 8.8 k/uL (3.8-10.6)
[2022-12-26 16:30] LABS: ALT 29 U/L (4-49); AST 21 U/L (17-59); African American GFR (CKD) >90 (>60 ml/min/1.73 sqM); Albumin 4.4 g/dL (3.5-5.0); Alkaline Phosphatase 81 U/L (38-126); Anion Gap 15 mmol/L; Blood Urea Nitrogen 15 mg/dL (9-20); Calcium 9.1 mg/dL (8.4-10.2); Carbon Dioxide 18 mmol/L (22-30); Chloride 109 mmol/L (98-107); Glucose 105 mg/dL (74-99); Non-African American GFR(CKD) >90 (>60 ml/min/1.73 sqM); Sodium 142 mmol/L (137-145); Total Bilirubin 0.5 mg/dL (0.2-1.3); Total Protein 7.3 g/dL (6.3-8.2)
[2022-12-26 16:51] LABS: Appearance,Urine Clear (Clear); Bilirubin,Urine Negative (Negative); Blood,Urine Negative (Negative); Color,Urine Light Yellow; Glucose,Urine (UA) 4+ (Negative); Leukocyte Esterase,Urine Negative (Negative); Nitrite,Urine Negative (Negative); PH, Urine 5.5 (5.0-8.0); Protein,Urine Negative (Negative); Urobilinogen,Urine <2.0 mg/dL (<2.0)
[2022-12-26 17:01] LABS: Ketones,Urine 3+ (Negative)
[2022-12-26] MEDS ORDERED: diphenhydrAMINE 50 MG/ML 1 ML VIAL IVP STA (17:27)
[2022-12-26] MEDS ORDERED: METOCLOPRAMIDE 5 MG/ML 2 ML VIAL IVP STA (17:27)
[2022-12-26] MEDS ORDERED: DEXAMETHASONE SOD PHOSPHATE 10 MG/ML 1 ML VIAL IVP STA (17:27)
[2022-12-26] MEDS ORDERED: DIPHENOX-ATROP STARTER PACK 8 TAB BTL PO STA (18:52)
[2022-12-26] MEDS ORDERED: ONDANSETRON 4 MG ODT STARTER PACK 2 TAB BTL PO STA (18:52)
[2022-12-26 19:27] VITALS: BP 139/86; PULSE 79; RESP 18; TEMP 97.8
== END 2022-12-26 19:27 | disposition home or self-care (01) ==
LOC: EC 13:14
DX: R11.2 Nausea with vomiting, unspecified (principal); R19.7 Diarrhea, unspecified; R51.9 Headache, unspecified; I10 Essential (primary) hypertension; E11.9 Type 2 diabetes mellitus without complications; E78.5 Hyperlipidemia, unspecified; K21.9 Gastro-esophageal reflux disease without esophagitis; F12.90 Cannabis use, unspecified, uncomplicated; Z79.82 Long term (current) use of aspirin; Z79.84 Long term (current) use of oral hypoglycemic drugs; Z79.899 Other long term (current) drug therapy
CPT/HCPCS: 36415; 84439; 80053; 84443; 84484; 85025; 81003; 99285; 96372; 96374; 96375 ×4; 96361; J1200; J0500; J1100; J2765; J2405; J1885; S0119

== ENCOUNTER → 2023-02-23 | Outpatient (CLI) | payer OTHER ==
[2023-02-23 12:35] VITALS: BP 131/74; PULSE 82; RESP 18; TEMP 98.4
--- NOTE | 2023-02-23 14:41 | P.PAINPG ---
Objective - Vital Signs Vital signs: Intake & Output 02/22/23 02/23/23 02/23/23 18:59 06:59 18:59 Weight 104.326 kg PQRS Measure Charge Sheet Comment: HISTORY OF PRESENT ILLNESS: 52 yr old as a referral from [facility] presents today w severe and chronic LBP x 10 yrs secondary to DDD, spondylosis and facet arthropathy without myelopathy for evaluation. Pt states pain level is provoked at 10/10 in intensity, constant, localized in the lower lumbar spine, burning in character w shooting pain towards the RLE. Pain is provoked by sitting/ standing for periods of 10 min or more. Pain is alleviated by PT in 2019 which provoked pain so much he couldn't walk the next day, heat, medications (IBU, ASA), repositioning and rest. Oswestry axial pain score at 27 . PMH: OA, DM II, GERD, Hyperlipidemia, HTN, Hypothyroid Disorder PSH: L Thumb Reattachment, L Ankle Reconstruction, R Knuckle Surgery SH: Never smoker, No ETOH abuse, Cannabis use FH: Mo- No Reported History All: See list Meds: See list REVIEW OF ORGAN SYSTEMS: CONSTITUTIONAL: No fevers or chills. No recent weight loss. NEUROLOGICAL: + numbness and tingling along the distal extremities. No seizure disorders or headaches. MUSCULOSKELETAL: + pain PSYCHIATRIC: Denies current depression or suicidal thoughts. Physical Examinations : Constitutional : Cooperative , not in acute distress . Neurologic : Cranial nerve II to XII intact. No focal neurological deficits. Psychiatric : alert & oriented x 3. Matching mood & appropriate affect. Judgment & insight intact. Musculoskeletal : Cervical Spine Motor strength in the deltoid and biceps: Normal right side. Normal Left side Motor strength biceps and the wrist extensors: Normal right side . Normal left side Motor strength in the triceps muscle: Normal right side. Normal left side Deep tendon reflexes: Normal at the biceps. Normal at Brachioradialis. Normal at triceps Vertebral body tenderness to deep palpation over Cervical facet loading test: positive bilaterally Spurling test: positive bilaterally Neck distraction test: positive bilaterally Jesika sign: positive bilaterally Lumbar spine Motor strength lower extremities ,thigh and legs 5/5 Right side , 5/5 Left side Deep tendon reflexes : Normal Knee Jerk. Normal Ankle Jerk Vertebral body tenderness over L4 Riddle Test positive Lumbar facet Loading Test: positive Right / positive Left Range of motion of the lumbar spine Flexion 30 degrees, extension 10 degrees Straight Leg Raise test: Left/ Right positive at 35 degrees Corie test: positive right / positive left. Severe tenderness over the Sacroiliac joint on the Right / Left sides Gaenslen test: positive bilaterally Seated flexion test: positive bilaterally. Sacral spine : Severe tenderness over the Sacroiliac joint: right side / left side Range of motion: Flexion of the lumbar spine <60 degrees Range of motion: Extension of the lumbar spine <20 degrees Gaenslen's Test positive Wes's Test positive Corie test: positive right side / left side Thigh Thrust Test Sacral Thrust Test Imaging: MRI non contrast of the lumbar spine from 02/17/22 reviewed Assessment/ Plan : Lumbar stenosis Recommendation of R TFESI L4-L5 #1. May need a series of injections for optimal pain relief. Risks, benefits of procedure discussed and patient verbalized understanding. Admits to aspirin or anti- coagulant use or medical history of diabetes. Protocol for discontinuation/ continuation of medications stephanie procedure discussed. Minimal anesthesia provided, if clinically indicated, consisting of Versed and Fentanyl. All questions answered. I have spent greater than 30 minutes on patient care today. Dr Ojeda was available by phone for the evaluation of this patient. The time was used to review the medical records including relevant urine studies and Prescription history (MAPs), review of the available imaging, evaluation and examination of the patient, coordination of care with the medical staff and if applicable referring physicians, as well as creation of the medical record PQRS Narrative: Smoking Status Never smoker Home Medications: Ambulatory Orders Aspirin [Adult Low Dose Aspirin EC] 81 mg PO HS 12/19/20 Empagliflozin [Jardiance] 25 mg PO DAILY 12/19/20 Levothyroxine Sodium [Synthroid] 175 mcg PO DAILY 12/19/20 Omeprazole 20 mg PO DAILY 12/19/20 Rosuvastatin [Crestor] 10 mg PO HS 12/19/20 lisinopriL [Zestril] 10 mg PO HS 12/19/20 Diclofenac Sodium [Voltaren] 75 mg PO BID #20 tab 12/26/22 Ergocalciferol (Vitamin D2) [Drisdol (50,000 Iu)] 1,250 mcg PO MO 12/26/22 Ketorolac [Toradol] 10 mg PO Q6HR PRN 12/26/22 Metoclopramide [Reglan] 10 mg PO Q6H PRN #20 tab 12/26/22 Ondansetron Odt [Zofran Odt] 4 mg PO Q8HR PRN #15 tab 12/26/22 Semaglutide [Ozempic] 1 mg SQ MO 12/26/22 Controlled Substance Measures - Controlled Substance Measures Is patient prescribed a controlled substance at discharge?: No
== END ==
LOC: PNWHC3 12:04
PROVIDERS: ATTEND Specialist
DX: M51.36 Other intervertebral disc degeneration, lumbar region (principal); M48.061 Spinal stenosis, lumbar region without neurogenic claudication; M19.90 Unspecified osteoarthritis, unspecified site; E11.9 Type 2 diabetes mellitus without complications; K21.9 Gastro-esophageal reflux disease without esophagitis; E78.5 Hyperlipidemia, unspecified; I10 Essential (primary) hypertension; E03.9 Hypothyroidism, unspecified; Z79.899 Other long term (current) drug therapy; Z79.890 Hormone replacement therapy
CPT/HCPCS: 99211

== ENCOUNTER → 2023-03-10 | Day surgery (SDC) | payer OTHER ==
[~2023-03-10] MED LIST changes: +IOPAMIDOL M200 10 ML VIAL ONE; +methylPREDNISolone ACETATE 40 MG/ML 1 ML VIAL ONE
[2023-03-10 09:19] VITALS: RESP 16; TEMP 97.2
[2023-03-10 09:25] LABS: Glucose,Whole Blood 163 mg/dL (70-110)
--- NOTE | 2023-03-10 09:46 | P.PCN ---
Date of Procedure: 03/10/23 Procedure(s) Performed: PREOPERATIVE DIAGNOSIS: 1-Lumbar radiculopathy . 2-lumbar degenerative disc disease. 3-lumbar spondylosis with lumbar facet arthropathy without myelopathy POSTOPERATIVE DIAGNOSIS: 1-lumbar radiculopathy. 2-lumbar degenerative disc disease. 3-lumbar spondylosis with facet arthropathy without myelopathy PROCEDURE 1. Transforaminal epidural steroid injection under fluoroscopic guidance at right L4-5 level. (Fluoroscopy images stored on file in the radiology Department ) 2. Lumbar epidurogram . ANESTHESIA: Local with 1% lidocaine 3 ml. EBL: Minimal PROCEDURE INDICATION: The patient with low back pain and radiculopathy symptoms unresponsive to conservative treatment. PROCEDURE DESCRIPTION / TECHNIQUE: The patient was seen and identified in the preoperative area. Risks, benefits, complications, and alternatives were discussed with the patient. The patient agreed to proceed with the procedure and signed the consent. IV was started, and vital signs were stable. Patient was taken to the OR and time out was completed. The patient was placed in the prone position on procedure table and a pillow was placed under the abdomen to reduce lumbar lordosis. The lumbosacral area was prepped and draped in the usual sterile fashion. Critical pause was taken. Vital signs were closely monitored during the procedure. Using oblique fluoroscopy, the chin of the ``Artis dog at right L4-5 level was identified, and the skin and deeper tissues just below was localized with 1% lidocaine. Subsequently, a 22-gauge 3.5-inch spinal needle was advanced under a tunneled view fluoroscopic guidance just underneath the chin of the `Melviny dog at the right L4-5 Under lateral fluoroscopy, the needle was then advanced to the posterior border of the interforaminal space. After negative aspiration of CSF and blood and with no paresthesias, 1 mL Isovue 200 contrast dye was injected excellent epidurogram and outlining of the nerve root Subsequently, 3 mL of block solution containing 40 mg Depo-Medrol and 2 mL of 0.9% normal saline PF was injected. Needle was removed . At the end of the procedure, skin was cleansed, and bandages were applied. COMPLICATIONS:none DISPOSITION / PLANS: The patient was placed in a supine position and transferred to the recovery area in a stable condition for observation. There was no evidence of lower extremity motor or sensory deficit after the procedure. Patient was discharged from the recovery room after meeting discharge criteria. Home discharge instructions were given to the patient by the staff. The patient was reexamined prior to discharge.
[2023-03-10 09:49] VITALS: BP 125/77; PULSE 69
--- NOTE | 2023-03-10 17:55 | FL ---
Intraoperative/procedural fluoroscopic services were provided. Total fluoroscopy time is 4.9 seconds with a total of 1 submitted images to PACS. Please see the operative/procedural note for further deta ils. DAP: 0.0116 mGym2
== END ==
LOC: ORPAIN 08:52
PROVIDERS: ATTEND Specialist
DX: M51.16 Intervertebral disc disorders with radiculopathy, lumbar region (principal); M47.26 Other spondylosis with radiculopathy, lumbar region
CPT/HCPCS: 64483; J1030; Q9966

== ENCOUNTER → 2023-03-30 | Outpatient (CLI) | payer OTHER ==
[2023-03-30 16:58] LABS: Calcium 10.2 mg/dL (8.7-10.3); Chloride 106 mmol/L (96-109); Glucose 169 mg/dL (70-110); Potassium 5.3 mmol/L (3.5-5.5); Sodium 140 mmol/L (135-145)
[2023-03-30 17:19] LABS: Basophils # (A) 0.03 X 10*3/uL (0.00-0.10); Basophils % (A) 0.4 %; Eosinophils # (A) 0.14 X 10*3/uL (0.04-0.35); HCT 49.3 % (39.6-50.0); HGB 16.2 d/dL (13.0-17.0); Lymphocytes % (A) 36.4 %; MCH 27.6 pg (27.0-32.0); MCHC 32.9 d/dL (32.0-37.0); Mean Platelet Volume 9.9 FL (9.5-12.2); Monocytes # (A) 0.73 X 10*3/uL (0.20-1.00); Monocytes % (A) 10.2 %; NRBC Per 100 WBC 0 X 10*3/uL (0.00-0.01); Neutrophils # (A) 3.61 X 10*3/uL (1.80-7.70); Neutrophils % (A) 50.6 %; Platelet Count 268 X 10*3/uL (140-440); RBC 5.87 X 10*6/uL (4.40-5.60); RDW 13.2 % (11.5-14.5); WBC 7.14 X 10*3/uL (4.50-10.00)
== END | disposition home or self-care (01) ==
LOC: LABPAT 09:04
PROVIDERS: ATTEND Orthopaedic Surgery Hand Surgery
DX: Z01.812 Encounter for preprocedural laboratory examination (principal); M18.12 Unilateral primary osteoarthritis of first carpometacarpal joint, left hand
CPT/HCPCS: 36415; 80048; 85025; 93005

== ENCOUNTER → 2023-04-15 | Day surgery (SDC) | payer OTHER ==
--- NOTE | 2023-04-14 12:39 | P.HPOR ---
History of Present Illness H&P Date: 04/14/23 Subjective: This is a 52 year old male that presents today for follow up evaluation regarding a 4-5 year history of progressively worsening left basilar thumb pain. Over the past year he has had injections into both thumb CMC joint and the first dorsal compartment with only temporary relief. He states the aching is now constant. He is unable to pinch or grasp without exquisite pain. He has a history of a left thumb injury that required pinning of the distal phalanx proximally 30 years ago. He denies any numbness or tingling. Physical Examination: LUE: AIN/PIN/Radial/Ulnar/Median motor intact. Radial/Ulnar/Median SILT. 2+/4 Radial/Ulnar pulses palpated. 5/5 APB, 5/5 FDI. Negative Finkelsteins, positive CMC grind, negative Durkan's compression. Imaging: X-Rays of the left hand 3V taken in office today demonstrate advanced arthritic changes at the thumb CMC joint. Impression: 1.) Left thumb CMC arthritis, severe. 2.) Left DeQuervains tenosynovitis. Plan: Diagnosis and treatment options were discussed with the patient. We discussed operative and non operative treatments for his thumb CMC arthritis. He has failed conservative treatment with injections now and his symptoms have been worsening for the past 4 years. He would like to pursue surgical intervention with a left thumb CMC joint arthroplasty. Risks and benefits of surgery including bleeding, infection, damage to surrounding tissue, need for further surgery, residual numbness were discussed and the patient wished to go forward with surgery. The patient was agreeable with this plan. CC: Orquidae Krishnamurthy FILENET DEVELOPER -Dawood Son DO Orthopedic Hand/Upper Extremity Surgeon Past Medical History Past Medical History: Diabetes Mellitus, GERD/Reflux, Hyperlipidemia, Hypertension, Thyroid Disorder Additional Past Medical History / Comment(s): arthritis left thumb and L4-5 History of Any Multi-Drug Resistant Organisms: None Reported Past Surgical History: Orthopedic Surgery Additional Past Surgical History / Comment(s): LT THUMB REPAIR/REATTACHMENT. RECONSTRUCTION LT ANKLE TENDONS. RT KNUCKLE REMOVED R/T INJURY. colonoscopy Past Anesthesia/Blood Transfusion Reactions: No Reported Reaction Smoking Status: Never smoker - Past Family History Mother Family Medical History: Coronary Artery Disease (CAD), Diabetes Mellitus Father Family Medical History: Coronary Artery Disease (CAD), Diabetes Mellitus Medications and Allergies Home Medications Medication Instructions Recorded Confirmed Type Aspirin [Adult Low Dose Aspirin EC] 81 mg PO HS 12/19/20 04/08/23 History Empagliflozin [Jardiance] 25 mg PO DAILY 12/19/20 04/08/23 History Levothyroxine Sodium [Synthroid] 175 mcg PO DAILY 12/19/20 04/08/23 History Omeprazole 20 mg PO HS 12/19/20 04/08/23 History Rosuvastatin [Crestor] 10 mg PO DAILY 12/19/20 04/08/23 History lisinopriL [Zestril] 10 mg PO HS 12/19/20 04/08/23 History Ergocalciferol (Vitamin D2) 1,250 mcg PO MO 12/26/22 04/08/23 History [Drisdol (50,000 Iu)] Semaglutide [Ozempic] 1 mg SQ MO 12/26/22 04/08/23 History Allergies Allergy/AdvReac Type Severity Reaction Status Date / Time No Known Allergies Allergy Verified 04/08/23 15:54 Physical Examination Osteopathic Statement: *. No significant issues noted on an osteopathic structural exam other than those noted in the History and Physical/Consult.
[~2023-04-15] MED LIST changes: +DEXAMETHASONE SOD PHOSPHATE 4 MG/ML 1 ML VIAL IV ONE; +HYDROmorphone 0.5 MG/0.5 ML SYRINGE IVP PRN; +INSULIN ASPART (NovoLOG) 100 UNIT/ML VIAL SQ ONE; -IOPAMIDOL M200 10 ML VIAL ONE; +LACTATED RINGERS 1,000 ML IV ONE; +LIDOCAINE 1% (10MG/ML) FOR IV START INTRADERMA PRN; +LIDOCAINE 1%-EPI 1:100,000 20 ML VIAL ONE; +LIDOCAINE 2% INJ 20 MG/ML (2 ML VIAL) ONE; +MIDAZOLAM 2 MG/2 ML VIAL IV PRN; +MIDAZOLAM 2 MG/2 ML VIAL IVP ONE; +MIDAZOLAM 2 MG/2 ML VIAL ONE; +ONDANSETRON 4 MG/2 ML VIAL IVP ONE; +PROPOFOL 10 MG/ML 20 ML VIAL IV ONE; +Pre Op ABX Message 1 EACH MISC MISCELLANE ONE; +ROPIVACAINE 5 MG/ML 30 ML VIAL ONE; +SODIUM CHLORIDE 0.9% 100 ML BAG ONE; +SODIUM CHLORIDE 0.9% 50 ML with ceFAZolin 2,000 MG IV ONE; +SUCCINYLCHOLINE CHLORIDE 200 MG/10 ML VIAL IV ONE; +ceFAZolin 1,000 MG VIAL ONE; +fentaNYL (PF) 50 MCG/ML 2 ML AMP IVP ONE; +fentaNYL (PF) 50 MCG/ML 2 ML AMP ONE; -methylPREDNISolone ACETATE 40 MG/ML 1 ML VIAL ONE
[2023-04-15 08:50] LABS: Glucose,Whole Blood 236 mg/dL (70-110)
--- NOTE | 2023-04-15 10:03 | P.ANPRN ---
Procedure Note - Anesthesia - Nerve Block Performed Left Supraclavicular Single Time Out Performed: Yes Date of Procedure: 04/15/23 Procedure Start Time: 09:39 Procedure Stop Time: :45 Location of Patient: PreOp Indication: Acute Post-Operative Pain, Requested by Surgeon Specifically requested for management of pain by DrTalat: Dawood Son Sedation Type: Sedate with meaningful contact maintained Preparation: Sterile Prep Position: Supine Needle Types: Pajunk Needle Gauge: 21 Ultrasound used to visualize needle placement: Yes Ultrasound used to observe medication spread: Yes Injectate: 0.5% Ropivacaine (see comment for volume) (15 ml + 1 % lidocaine with epi 1/200 k) Blood Aspirated: No Pain Paresthesia on Injection Noted: No Resistance on Injection: Normal Image Stored and Saved: Yes Events: Uneventful and Well Tolerated
--- NOTE | 2023-04-15 11:18 | P.OP ---
Date of Procedure: 04/14/23 Preoperative Diagnosis: Left thumb CMC arthritis Postoperative Diagnosis: Left thumb CMC arthritis Procedure(s) Performed: Left thumb basilar joint arthroplasty Implants: Arthrex Swivel Lock suture anchor 3.5mm x 2 Anesthesia: NATHALIE, regional Surgeon: Dawood Son Estimated Blood Loss (ml): 0 Pathology: none sent Condition: stable Disposition: PACU Description of Procedure: This is a 52 year old male who presents today for a left thumb CMC basal joint arthroplasty after having failed conservative treatment for severe thumb CMC arthritis. Risks and benefits of surgery were discussed with the patient including bleeding, damage to surrounding tissue, infection, need for further surgery as well as risks of anesthesia including pulmonary embolism and even and the patient wished to proceed with surgical intervention. The patients was seen in the pre-operative area by myself. Consent and H&P were completed and updated. The correct extremity was marked in the pre-operative area by myself and all other questions were answered. Patient received a upper extremity nerve block by the department of anesthesia. He then was brought to the operating room by the department of anesthesia. They remained on the portable stretcher and a rolling hand table was brought to the side of the operative extremity. The patient was then drifted off to sleep by the department of anesthesia. A nonsterile tourniquet was then applied to the operative extremity and the left upper extremity was then prepped and draped in normal sterile fashion. Pre-operative time out was performed indicating the correct patient, procedure and laterality. All in the room agreed. Pre-operative antibiotics were given prior to skin incision. The operative extremity was the exsanguinated with an esmarch bandage and the tourniquet was inflated to 250mmHg. Longitudinal incision was made over the left thumb CMC joint with a 15 blade scalpel. Blunt dissection was taken down to subcutaneous tissues with littler scissors taking care to preserve the branches of the superficial radial nerve. Dorsal radial artery was identified proximally in the incision and protected throughout the procedure. Scalpel was then made to incise the thumb CMC joint creating full thickness flaps off of the proximal metacarpal base and trapezium, this plane was further developed with a periosteal elevator. Elevator was then utilized to identify the thumb CMC joint and scaphotrapezial joint. McGlamory elevator was then used to excise the trapezium whole. Guidewire was then introduced down to the laser line at the base of the first metacarpal through the same incision and was over drilled. Another guidewire was then inserted at the radial base of the first metacarpal near the Insertion of APL and was then over drilled with normal drill guide. A 3.5mm Arthrex SwiveLock anchor was then inserted into the base of the first metacarpal. While holding the thumb in slight traction and full adduction, another 3.5mm Arthrex SwiveLock anchor was inserted into the base of the second metacarpal and the two strands of fibertape were centered across the first metacarpal base to create a sling around the base suspending the thumb metacarpal, good kaleb purchase was appreciated. The thumb was successfully suspended and full ROM was achieved passively. Suture ends were cut and skin was closed with several interrupted 4-0 Monocryl sutures followed by a running 4-0 Monocryl stitch. Sterile dressing consisting of steri strips followed by 4x4s cast padding, and a thumb spica plaster splint was applied. Tourniquet was let down and the hand had brisk cap refill and normal perfusion immediately. The patient was then woken by the department of anesthesia and transferred to PACU in stable condition. Dawood Son D.O. Orthopedic Hand/Upper Extremity Surgeon
[2023-04-15 11:26] VITALS: TEMP 96.8
[2023-04-15 11:32] LABS: Glucose,Whole Blood 207 mg/dL (70-110)
[2023-04-15 12:21] VITALS: BP 130/82; PULSE 76; RESP 14
== END | disposition home or self-care (01) ==
LOC: OR 08:17
PROVIDERS: ATTEND Orthopaedic Surgery Hand Surgery
DX: M18.12 Unilateral primary osteoarthritis of first carpometacarpal joint, left hand (principal); G89.18 Other acute postprocedural pain; M65.9 Synovitis and tenosynovitis, unspecified; E11.9 Type 2 diabetes mellitus without complications; K21.9 Gastro-esophageal reflux disease without esophagitis; E78.5 Hyperlipidemia, unspecified; I10 Essential (primary) hypertension; E07.9 Disorder of thyroid, unspecified; Z98.890 Other specified postprocedural states; Z82.49 Family history of ischemic heart disease and other diseases of the circulatory system; Z79.82 Long term (current) use of aspirin; Z79.84 Long term (current) use of oral hypoglycemic drugs; Z79.890 Hormone replacement therapy; Z79.899 Other long term (current) drug therapy
CPT/HCPCS: 64415; 84132; 25447; C1713; J2250; J0330; J1100; J2405; J0690; J3010; J2795; J2704; J2001

== ENCOUNTER → 2023-04-23 | Outpatient (CLI) | payer OTHER ==
--- NOTE | 2023-04-23 15:57 | P.PAINPG ---
PQRS Measure Charge Sheet Comment: HISTORY OF PRESENT ILLNESS: 52 yr old male presents today w severe and chronic LBP x 10 yrs secondary to DDD, spondylosis and facet arthropathy without myelopathy for evaluation s/p R TFESI L4-L5. Pt states he experienced 40% pain relief x 1 wk s/p procedure. Pt states pain level is provoked at 10/10 in intensity, constant, localized in the lower lumbar spine, burning in character w shooting pain towards the RLE. Pain is provoked by sitting/ standing for periods of 10 min or more. Pain is alleviated by PT in 2019 which provoked pain so much he couldn't walk the next day, heat, medications, repositioning and rest. Oswestry axial pain score at 18 . Interventional procedures include R TFESI L4-L5 x1 Medications include [place], Ibu, ASA REVIEW OF ORGAN SYSTEMS: CONSTITUTIONAL: No fevers or chills. No recent weight loss. NEUROLOGICAL: + numbness and tingling along the distal extremities. No seizure disorders or headaches. MUSCULOSKELETAL: + pain PSYCHIATRIC: Denies current depression or suicidal thoughts. Physical Examinations : Constitutional : Cooperative , not in acute distress . Neurologic : Cranial nerve II to XII intact. No focal neurological deficits. Psychiatric : alert & oriented x 3. Matching mood & appropriate affect. Judgment & insight intact. Musculoskeletal : Cervical Spine Motor strength in the deltoid and biceps: Normal right side. Normal Left side Motor strength biceps and the wrist extensors: Normal right side . Normal left side Motor strength in the triceps muscle: Normal right side. Normal left side Deep tendon reflexes: Normal at the biceps. Normal at Brachioradialis. Normal at triceps Vertebral body tenderness to deep palpation over Cervical facet loading test: positive bilaterally Spurling test: positive bilaterally Neck distraction test: positive bilaterally Jesika sign: positive bilaterally Lumbar spine Motor strength lower extremities ,thigh and legs 5/5 Right side , 5/5 Left side Deep tendon reflexes : Normal Knee Jerk. Normal Ankle Jerk Vertebral body tenderness Riddle Test positive Lumbar facet Loading Test: positive Right / positive Left over BL L4-L5, L5-S1 Range of motion of the lumbar spine Flexion 30 degrees, extension 10 degrees Straight Leg Raise test: Left/ Right positive at 35 degrees Corie test: positive right / positive left. Severe tenderness over the Sacroiliac joint on the Right / Left sides Gaenslen test: positive bilaterally Seated flexion test: positive bi laterally. Sacral spine : Severe tenderness over the Sacroiliac joint: right side / left side Range of motion: Flexion of the lumbar spine <60 degrees Range of motion: Extension of the lumbar spine <20 degrees Gaenslen's Test positive Wes's Test positive Corie test: positive right side / left side Thigh Thrust Test Sacral Thrust Test Imaging: MRI non contrast of the lumbar spine from 02/17/22 reviewed Assessment/ Plan : Lumbar stenosis Recommendation of BL facet block of the medial branches L4-L5, L5-1 #1. May need a series of injections, up until RFA, for optimal pain relief. Risks, benefits of procedure discussed and patient verbalized understanding. Admits to aspirin or anti- coagulant use or medical history of diabetes. Protocol for discontinuation/ continuation of medications stephanie procedure discussed. Minimal anesthesia provided, if clinically indicated, consisting of Versed and Fentanyl. All questions answered. I have spent greater than 30 minutes on patient care today. Dr Ojeda was available by phone for the evaluation of this patient. The time was used to review the medical records including relevant urine studies and Prescription history (MAPs), review of the available imaging, evaluation and examination of the patient, coordination of care with the medical staff and if applicable referring physicians, as well as creation of the medical record PQRS Narrative: Smoking Status Never smoker Hx Alcohol Use (MH) No Home Medications: Ambulatory Orders Aspirin [Adult Low Dose Aspirin EC] 81 mg PO HS 12/19/20 Empagliflozin [Jardiance] 25 mg PO DAILY 12/19/20 Levothyroxine Sodium [Synthroid] 175 mcg PO DAILY 12/19/20 Omeprazole 20 mg PO HS 12/19/20 Rosuvastatin [Crestor] 10 mg PO DAILY 12/19/20 lisinopriL [Zestril] 10 mg PO HS 12/19/20 Ergocalciferol (Vitamin D2) [Drisdol (50,000 Iu)] 1,250 mcg PO MO 12/26/22 Semaglutide [Ozempic] 1 mg SQ MO 12/26/22 HYDROcodone/APAP 5-325MG [[place] 5-325] 1 tab PO Q6HR PRN 3 Days #18 tab 04/15/23 Controlled Substance Measures - Controlled Substance Measures Is patient prescribed a controlled substance at discharge?: No
[2023-04-23 16:02] VITALS: BP 123/80; PULSE 96; RESP 16; TEMP 98.5
== END ==
LOC: PNWHC3 08:08
PROVIDERS: ATTEND Specialist
DX: M48.061 Spinal stenosis, lumbar region without neurogenic claudication (principal); Z79.82 Long term (current) use of aspirin
CPT/HCPCS: 99211

== ENCOUNTER → 2023-05-28 | Outpatient (CLI) | payer OTHER ==
[2023-05-28 08:56] VITALS: BP 127/83; PULSE 97; RESP 15; TEMP 98.2
--- NOTE | 2023-05-28 11:19 | P.PAINPG ---
PQRS Measure Charge Sheet Comment: HISTORY OF PRESENT ILLNESS: 52 yr old male presents today w severe and chronic LBP x 10 yrs secondary to DDD, spondylosis and facet arthropathy without myelopathy for evaluation s/p BL MBB L3-L5 #1. Pt states he experienced 60% pain relief x 4 days s/p procedure. Pt states pain level is provoked at 10/10 in intensity, constant, localized in the lower lumbar spine, burning in character w shooting pain towards the RLE. Pain is provoked by sitting/ standing for periods of 10 min or more. Pain is alleviated by PT in 2019 which provoked pain so much he couldn't walk the next day, heat, medications, repositioning and rest. Oswestry axial pain score at 18 . Interventional procedures include R TFESI L4-L5 x1, BL MBB L3- L5 x1 Medications include [place], [place]bu, ASA REVIEW OF ORGAN SYSTEMS: CONSTITUTIONAL: No fevers or chills. No recent weight loss. NEUROLOGICAL: + numbness and tingling along the distal extremities. No seizure disorders or headaches. MUSCULOSKELETAL: + pain PSYCHIATRIC: Denies current depression or suicidal thoughts. Physical Examinations : Constitutional : Cooperative , not in acute distress . Neurologic : Cranial nerve II to XII intact. No focal neurological deficits. Psychiatric : alert & oriented x 3. Matching mood & appropriate affect. Judgment & insight intact. Musculoskeletal : Cervical Spine Motor strength in the deltoid and biceps: Normal right side. Normal Left side Motor strength biceps and the wrist extensors: Normal right side . Normal left side Motor strength in the triceps muscle: Normal right side. Normal left side Deep tendon reflexes: Normal at the biceps. Normal at Brachioradialis. Normal at triceps Vertebral body tenderness to deep palpation over Cervical facet loading test: positive bilaterally Spurling test: positive bilaterally Neck distraction test: positive bila terally Jesika sign: positive bilaterally Lumbar spine Motor strength lower extremities ,thigh and legs 5/5 Right side , 5/5 Left side Deep tendon reflexes : Normal Knee Jerk. Normal Ankle Jerk Vertebral body tenderness Riddle Test positive Lumbar facet Loading Test: positive Right / positive Left over BL L4-L5, L5-S1 Range of motion of the lumbar spine Flexion 30 degrees, extension 10 degrees Straight Leg Raise test: Left/ Right positive at 35 degrees Corie test: positive right / positive left. Severe tenderness over the Sacroiliac joint on the Right / Left sides Gaenslen test: positive bilaterally Seated flexion test: positive bilaterally. Sacral spine : Severe tenderness over the Sacroiliac joint: right side / left side Range of motion: Flexion of the lumbar spine <60 degrees Range of motion: Extension of the lumbar spine <20 degrees Gaenslen's Test positive Wes's Test positive Corie test: positive right side / left side - Thigh Thrust Test Sacral Thrust Test Imaging: MRI non contrast of the lumbar spine from 02/17/22 reviewed Assessment/ Plan : Lumbar stenosis Recommendation of orthopedic surgery referral. Pt has exhibited insufficient pain relief w prior procedures. Card for [employer] provided. All questions answered. I have spent greater than 30 minutes on patient care today. Dr Ojeda was available by phone for the evaluation of this patient. The time was used to review the medical records including relevant urine studies and Prescription history (MAPs), review of the available imaging, evaluation and examination of the patient, coordination of care with the medical staff and if applicable referring physicians, as well as creation of the medical record PQRS Narrative: Smoking Status Never smoker Hx Alcohol Use (MH) No Home Medications: Ambulatory Orders Aspirin [Adult Low Dose Aspirin EC] 81 mg PO HS 12/19/20 Empagliflozin [Jardiance] 25 mg PO QAM 12/19/20 Levothyroxine Sodium [Synthroid] 175 mcg PO QAM 12/19/20 Omeprazole 20 mg PO HS 12/19/20 Rosuvastatin [Crestor] 10 mg PO HS 12/19/20 lisinopriL [Zestril] 10 mg PO HS 12/19/20 Ergocalciferol (Vitamin D2) [Drisdol (50,000 Iu)] 1,250 mcg PO MO 12/26/22 Semaglutide [Ozempic] 1 mg SQ MO 12/26/22 Controlled Substance Measures - Controlled Substance Measures Is patient prescribed a controlled substance at discharge?: No
== END ==
LOC: PNWHC3 08:19
PROVIDERS: ATTEND Specialist
DX: M48.061 Spinal stenosis, lumbar region without neurogenic claudication (principal); Z79.82 Long term (current) use of aspirin
CPT/HCPCS: 99211

== ENCOUNTER → 2023-07-07 | Outpatient (CLI) | payer OTHER ==
--- NOTE | 2023-07-07 08:22 | CT ---
EXAMINATION TYPE: CT lumbar spine wo con DATE OF EXAM: 07/07/2023 7:13 AM COMPARISON: MRI lumbar spine 03/10/2022 HISTORY: Low back pain CT DLP: 1539.1 mGycm Automated exposure control for dose reduction was used. Unenhanced CT of the lumbar spine was performed. Bone and soft tissue window settings are submitted as well as coronal and sagittal reconstructions. 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 L1-L2: Normal disc space height. No disc herniation protrusion or central stenosis. No facet joint arthropathy. No evidence for foraminal encroachment. L2-L3: Normal disc space height. No disc herniation protrusion or central stenosis. No facet joint arthropathy. No evidence for foraminal encroachment. L3-L4: Normal disc space height. Mild posterior disc bulge with minimal ventral thecal sac effacement . No evidence for central stenosis or disc herniation. Mild left foraminal encroachment. No facet wilber nt arthropathy. L4-L5: There is moderate degenerative disc space narrowing. Moderate circumferential disc bulge great est posteriorly. Subligamentous herniation is difficult to exclude. There is moderate central stenosi s noted. Left greater than right neural foraminal encroachment. L5-S1: Normal disc space height. No disc herniation protrusion or central stenosis. No facet joint arthropathy. No evidence for foraminal encroachment. IMPRESSION: 1. Multilevel degenerative disc disease. 2. Moderate central stenosis at L4-5 as discussed above. 3. Varying degrees of foraminal encroachment. 4. Changes of dish as noted.
== END | disposition home or self-care (01) ==
LOC: RADCTMAIN 06:54
PROVIDERS: ATTEND Orthopaedic Surgery
DX: M48.061 Spinal stenosis, lumbar region without neurogenic claudication (principal); M51.36 Other intervertebral disc degeneration, lumbar region; M51.26 Other intervertebral disc displacement, lumbar region
CPT/HCPCS: 72131

== ENCOUNTER → 2023-08-18 | Outpatient (CLI) | payer OTHER ==
[2023-08-18 08:31] VITALS: BP 122/79; PULSE 79; RESP 15; TEMP 98.6
--- NOTE | 2023-08-18 12:58 | P.PAINPG ---
PQRS Measure Charge Sheet Comment: HISTORY OF PRESENT ILLNESS: A 53 yr old male presents today w severe and chronic LBP x 10 yrs secondary to DDD, spondylosis and facet arthropathy without myelopathy for evaluation. Pt states pain level is provoked at 6/10 in intensity, constant, localized in the R lower lumbar spine, predominantly axial, burning in character w occasional shooting pain towards the RLE. Pain is provoked by sitting/ standing for periods of 10 min or more. PT in 2019 provoked pain so much he couldn't walk the next day. Pain is relieved by physician guided home stretches daily since Feb 2023, heat, medications, repositioning and rest. Oswestry axial pain score at 19 . Interventional procedures include R TFESI L4-L5 x1, BL MBB L3- L5 x1 Medications include [place], Ibu, ASA REVIEW OF ORGAN SYSTEMS: CONSTITUTIONAL: No fevers or chills. No recent weight loss. NEUROLOGICAL: + numbness and tingling along the distal extremities. No seizure disorders or headaches. MUSCULOSKELETAL: + pain PSYCHIATRIC: Denies current depression or suicidal thoughts. Physical Examinations : Constitutional : Cooperative , not in acute distress . Neurologic : Cranial nerve II to XII intact. No focal neurological deficits. Psychiatric : alert & oriented x 3. Matching mood & appropriate affect. Judgment & insight intact. Musculoskeletal : Cervical Spine Motor strength in the deltoid and biceps: Normal right side. Normal Left side Motor strength biceps and the wrist extensors: Normal right side . Normal left side Motor strength in the triceps muscle: Normal right side. Normal left side Deep tendon reflexes: Normal at the biceps. Normal at Brachioradialis. Normal at triceps Vertebral body tenderness to deep palpation over Cervical facet loading test: positive bilaterally Spurling test: positive bilaterally Neck distraction test: positive bilaterally Jesika sign: positive bilaterally Lumbar spine Motor strength lower extremities ,thigh and legs 5/5 Right side , 5/5 Left side Deep tendon reflexes : Normal Knee Jerk. Normal Ankle Jerk Vertebral body tenderness L4 Riddle Test positive Lumbar facet Loading Test: positive Right / positive Left Range of motion of the lumbar spine Flexion 30 degrees, extension 10 degrees Straight Leg Raise test: Left/ Right positive at 35 degrees Corie test: positive right / positive left. Severe tenderness over the Sacroiliac joint on the Right / Left sides Gaenslen test: positive bilaterally Seated flexion test: positive bilaterally. Sacral spine : Severe tenderness over the Sacroiliac joint: right side / left side Range of motion: Flexion of the lumbar spine <60 degrees Range of motion: Extension of the lumbar spine <20 degrees Gaenslen's Test positive Wes's Test positive Corie test: positive right side / left side Thigh Thrust Test Sacral Thrust Test Imaging: MRI non contrast of the lumbar spine from 02/17/[address] non contrast of the lumbar spine from 07/04/23 reviewed Assessment/ Plan : Lumbar stenosis, Lumbar DDD Recommendation of R TFESI L4-L5. May need a series of injections for optimal pain relief. Risks, benefits of procedure discussed and pt verbalized understanding. Protocol for discontinuation/ continuation of medications stephanie procedure discussed. All questions answered. I have spent greater than 30 minutes on patient care today. Dr Ojeda was available by phone for the evaluation of this patient. The time was used to review the medical records including relevant urine studies and Prescription history (MAPs), review of the available imaging, evaluation and examination of the patient, coordination of care with the medical staff and if applicable referring physicians, as well as creation of the medical record PQRS Narrative: Smoking Status Never smoker Hx Alcohol Use (MH) No Home Medications: Ambulatory Orders Aspirin [Adult Low Dose Aspirin EC] 81 mg PO HS 12/19/20 Empagliflozin [Jardiance] 25 mg PO QAM 12/19/20 Levothyroxine Sodium [Synthroid] 175 mcg PO QAM 12/19/20 Omeprazole 20 mg PO HS 12/19/20 Rosuvastatin [Crestor] 10 mg PO HS 12/19/20 lisinopriL [Zestril] 10 mg PO HS 12/19/20 Ergocalciferol (Vitamin D2) [Drisdol (50,000 Iu)] 1,250 mcg PO MO 12/26/22 Semaglutide [Ozempic] 1 mg SQ MO 12/26/22 Controlled Substance Measures - Controlled Substance Measures Is patient prescribed a controlled substance at discharge?: No
== END ==
LOC: PNWHC3 07:47
PROVIDERS: ATTEND Specialist
DX: M51.26 Other intervertebral disc displacement, lumbar region (principal); M51.36 Other intervertebral disc degeneration, lumbar region; M48.061 Spinal stenosis, lumbar region without neurogenic claudication; F12.90 Cannabis use, unspecified, uncomplicated; Z79.82 Long term (current) use of aspirin
CPT/HCPCS: 99211

== ENCOUNTER 2023-08-25 06:41 | Day surgery (SDC) | payer OTHER ==
[~2023-08-25 06:41] MED LIST changes: -DEXAMETHASONE SOD PHOSPHATE 4 MG/ML 1 ML VIAL IV ONE; -HYDROmorphone 0.5 MG/0.5 ML SYRINGE IVP PRN; -INSULIN ASPART (NovoLOG) 100 UNIT/ML VIAL SQ ONE; -LACTATED RINGERS 1,000 ML IV ONE; -LIDOCAINE 1% (10MG/ML) FOR IV START INTRADERMA PRN; -LIDOCAINE 1%-EPI 1:100,000 20 ML VIAL ONE; -LIDOCAINE 2% INJ 20 MG/ML (2 ML VIAL) ONE; -MIDAZOLAM 2 MG/2 ML VIAL IV PRN; -MIDAZOLAM 2 MG/2 ML VIAL IVP ONE; -MIDAZOLAM 2 MG/2 ML VIAL ONE; -ONDANSETRON 4 MG/2 ML VIAL IVP ONE; -PROPOFOL 10 MG/ML 20 ML VIAL IV ONE; -Pre Op ABX Message 1 EACH MISC MISCELLANE ONE; -ROPIVACAINE 5 MG/ML 30 ML VIAL ONE; -SODIUM CHLORIDE 0.9% 100 ML BAG ONE; -SODIUM CHLORIDE 0.9% 50 ML with ceFAZolin 2,000 MG IV ONE; -SUCCINYLCHOLINE CHLORIDE 200 MG/10 ML VIAL IV ONE; -ceFAZolin 1,000 MG VIAL ONE; -fentaNYL (PF) 50 MCG/ML 2 ML AMP IVP ONE; -fentaNYL (PF) 50 MCG/ML 2 ML AMP ONE
[2023-08-25 07:01] LABS: Glucose,Whole Blood 184 mg/dL (70-110)
[2023-08-25 07:05] VITALS: RESP 16; TEMP 97.8
[2023-08-25] MEDS ORDERED: IOPAMIDOL M200 10 ML VIAL ONE (07:20)
[2023-08-25] MEDS ORDERED: methylPREDNISolone ACETATE 40 MG/ML 1 ML VIAL ONE (07:20)
--- NOTE | 2023-08-25 07:29 | P.PCN ---
Date of Procedure: 08/25/23 Procedure(s) Performed: PREOPERATIVE DIAGNOSIS: 1-Lumbar radiculopathy . 2-lumbar degenerative disc disease. 3-lumbar foraminal stenosis POSTOPERATIVE DIAGNOSIS: 1-lumbar radiculopathy. 2-lumbar degenerative disc disease. 3-lumbar foraminal stenosis PROCEDURE 1. Transforaminal epidural steroid injection under fluoroscopic guidance at right /left L4-5 level. (Fluoroscopy images stored on file in the radiology Department ) 2. Lumbar epidurogram . ANESTHESIA: Local with 1% lidocaine 3 ml. EBL: Minimal PROCEDURE INDICATION: The patient with low back pain and radiculopathy symptoms unresponsive to conservative treatment. PROCEDURE DESCRIPTION / TECHNIQUE: The patient was seen and identified in the preoperative area. Risks, benefits, complications, and alternatives were discussed with the patient. The patient agreed to proceed with the procedure and signed the consent. IV was started, and vital signs were stable. Patient was taken to the OR and time out was completed. The patient was placed in the prone position on procedure table and a pillow was placed under the abdomen to reduce lumbar lordosis. The lumbosacral area was prepped and draped in the usual sterile fashion. Critical pause was taken. Vital signs were closely monitored during the procedure. Using oblique fluoroscopy, the chin of the ``Artis dog at Right L4-5 level was identified, and the skin and deeper tissues just below was localized with 1% lidocaine. Subsequently, a 22-gauge 5-inch spinal needle was advanced under a tunneled view fluoroscopic guidance just underneath the chin of the ``Artis dog at the right L4-5 Under lateral fluoroscopy, the needle was then advanced to the posterior border of the interforaminal space. After negative aspiration of CSF and blood and with no paresthesias, 1 mL Isovue 200 contrast dye was injected excellent epidurogram and outlining of the nerve root Subsequently, 3 mL of block solution containing 40 mg Depo-Medrol and 2 mL of 0.9% normal saline PF was injected. Needle was removed . At the end of the procedure, skin was cleansed, and bandages were applied. COMPLICATIONS:none DISPOSITION / PLANS: The patient was placed in a supine position and transferred to the recovery area in a stable condition for observation. There was no evidence of lower extremity motor or sensory deficit after the procedure. Patient was discharged from the recovery room after meeting discharge criteria. Home discharge instructions were given to the patient by the staff. The patient was reexamined prior to discharge.
[2023-08-25 07:51] VITALS: BP 128/76; PULSE 87
--- NOTE | 2023-08-25 08:10 | FL ---
EXAMINATION TYPE: FL guided pain mgmt statistic DATE OF EXAM: 08/25/2023 HISTORY: Fluoroscopy time Total dose area product (DAP) in uGy*m?, mGy*cm? (or similar): 0.85614 IMPRESSION: 1. Fluoroscopy time.
== END 2023-08-25 07:53 | disposition home or self-care (01) ==
LOC: ORPAIN 06:41
PROVIDERS: ATTEND Specialist
DX: M48.061 Spinal stenosis, lumbar region without neurogenic claudication (principal); M51.16 Intervertebral disc disorders with radiculopathy, lumbar region
CPT/HCPCS: 64483; J1030; Q9966

== ENCOUNTER → 2023-09-17 | Outpatient (CLI) | payer OTHER ==
[~2023-09-17] MED LIST changes: +KETOROLAC 30 MG/ML 1 ML VIAL IVP NR; -LACTATED RINGERS 1,000 ML IV SCH
[2023-09-17] MEDS: KETOROLAC 30 MG/ML 1 ML VIAL IM NR (08:45)
[2023-09-17 08:54] VITALS: BP 148/97; PULSE 87; RESP 16; TEMP 97.8
== END ==
LOC: PNWHC3 07:35
PROVIDERS: ATTEND Specialist
DX: M48.061 Spinal stenosis, lumbar region without neurogenic claudication (principal); M47.816 Spondylosis without myelopathy or radiculopathy, lumbar region
CPT/HCPCS: 96372; J1885; G0463; 99211

== ENCOUNTER → 2023-11-27 | Outpatient (CLI) | payer OTHER ==
--- NOTE | 2023-11-27 08:29 | CT ---
EXAMINATION TYPE: CT lumbar spine wo con DATE OF EXAM: 11/27/2023 COMPARISON: 06/29/2023 HISTORY: spondylosis, pre surgical CT DLP: 970 mGycm CONTRAST: None TECHNIQUE: CT of the lumbar spine is performed on a spiral scan at 3 mm thick sections. Reconstructed images are performed in the coronal and sagittal planes. FINDINGS: Vertebral body alignment is normal. Disc heights are preserved. Vertebral body heights are preserved. There is spinal canal stenosis L4-5. No acute osseous abnormality. IMPRESSION: 1. Spinal canal stenosis L4-5.
== END | disposition home or self-care (01) ==
LOC: RADCTMAIN 07:26
PROVIDERS: ATTEND Orthopaedic Surgery
DX: Z01.818 Encounter for other preprocedural examination (principal); M48.061 Spinal stenosis, lumbar region without neurogenic claudication; M47.816 Spondylosis without myelopathy or radiculopathy, lumbar region; M47.812 Spondylosis without myelopathy or radiculopathy, cervical region
CPT/HCPCS: 72131

== ENCOUNTER → 2023-12-30 | Outpatient (CLI) | payer OTHER | END | disposition home or self-care (01) | LOC: LABPAT 08:49 | PROVIDERS: ATTEND Orthopaedic Surgery | DX: Z01.812 Encounter for preprocedural laboratory examination (principal); M48.061 Spinal stenosis, lumbar region without neurogenic claudication; Z22.322 Carrier or suspected carrier of Methicillin resistant Staphylococcus aureus | CPT/HCPCS: 36415; 86850; 86900; 86901; 87070 ==

== ENCOUNTER 2024-01-05 09:29 | Day surgery (SDC) | payer OTHER ==
--- NOTE | 2024-01-04 14:00 | P.HPOR ---
History of Present Illness H&P Date: 12/30/23 .D:Date: 12/30/23 : 08:21am .T:Title: *[facility] HISTORY AND PHYSICAL Age: 53 year Height: 5'8" Weight: 248 lbs BMI: 37.71 kg/m2 Occupation: [employer] VAS: 10 IMPRESSION: It was my pleasure to have seen and examinedSteven. I reviewed the patient's clinical syndrome, physical findings, and imaging studies during the appointment today. It is my impression that the patient has a diagnosis of. 1. L4-5 spondylosis with stenosis 2. L4-5 facet arthrosis 3. L4-5 radiculopathy 4. Low back pain Spine Surgery Risk Review Mr. Damon is presenting for evaluation of low back and bilateral lower extremity pain, bilateral lower extremity numbness and tingling. It was my pleasure to have seen and examined Mr. Damon. In our visit today we have had a chance to go over subjective complaints, physical examination findings and treatments including the natural course history without intervention and various interventional options. The patients imaging demonstrates: CT scan[facility] at [facility] from07/07/2023 of LumbarSpine: - Images reviewed with pt. Unenhanced CT of the lumbar spine was performed. Bone and soft tissue window settings are submitted as well as coronal and sagittal reconstructions. 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 L1-L2: Normal disc space height. No disc herniation protrusion or central stenosis. No facet joint arthropathy. No evidence for foraminal encroachment. L2-L3: Normal disc space height. No disc herniation protrusion or central stenosis. No facet joint arthropathy. No evidence for foraminal encroachment. L3-L4: Normal disc space height. Mild posterior disc bulge with minimal ventral thecal sac effacement. No evidence for central stenosis or disc herniation. Mild left foraminal encroachment. No facet joint arthropathy. L4-L5: There is moderate degenerative disc space narrowing. Moderate circumferential disc bulge greatest posteriorly. Subligamentous herniation is difficult to exclude. There is moderate central stenosis noted. Left greater than right neural foraminal encroachment. L5-S1: Normal disc space height. No disc herniation protrusion or central stenosis. No facet joint arthropathy. No evidence for foraminal encroachment. IMPRESSION: 1. Multilevel degenerative disc disease. 2. Moderate central stenosis at L4-5 as discussed above. 3. Varying degrees of foraminal encroachment. 4. Changes of dish as noted. Images re-reviewed in office today with the patient: - 05/07/23: Facet block flouro - 03/10/23: ESTELLE flouro - 03/10/22: MRI L spine - 02/17/22: Xray L spine Continued demonstration of severe spondylosis L4-5 with disc height loss dessication and progression of disease with increased stenosis, herniation, facet arthropathy and deformity related to disease progression. On physical exam, Mr. Damon demonstrates: A shooting, throbbing pain throughout the low back that radiates down into the bilateral lower extremities. He notes his leg pain starts around the anterior thigh and terminates around the bilateral ankle. The patient states his leg pain is associated with continued numbness and tingling bilaterally. He states his pain worsens after prolonged standing and walking or when going from a seated to standing position. The patient notes home ice therapies exacerbates his lumbar pain. The patient notes increased urination over the last 3 to 4 weeks. I have explained to the patient that as their condition progresses it will cause further neurological deficits and eventual paralysis. Based on the patients imaging, physical exam, and the rapid progression and disabling nature of their symptoms, at this time I recommend surgery in the form of a: MIS L4-5 posterolateral interbody fusion. I discussed the risk and benefits of this procedure at length with Mr. Damon. The patient agreed to considered pursuing the procedure above mentioned. Prior to surgery, she should follow up with her PCP (Cardio, ID, IM etc) for clearance. Questions were invited and answered, and the patient wishes to proceed as outlined below. Currently, I am recommendin.MINIMALLY INVASIVE L4-5 POSTEROLATERAL AND INTERBODY DECOMPRESSION AND FUSION 2.Review of surgical risks and benefits as well as an educational packet on the proposed surgical procedure. Risks: All surgical procedures come with inherent risks, including those related to positioning, anesthesia, intraoperative findings, and postoperative complications. It is important to understand that surgery does not come with any guarantee of a successful outcome as complications and adverse events are always possible. The patient was given a handout in office today discussing the surgical procedure and risks associated with the intervention, both of which were discussed with the patient. These risks include but are not limited to the following: * Experiencing same, different or even worse symptoms in back, neck, arms, or legs compared to before surgery. Requiring further surgery or other forms of treatment presently or at some time in the future at same or other levels of the intended spine surgery. On an extreme but fortunately relatively rare basis severe complication such as blindness, stroke, heart attack, temporary and/or permanent nerve injury, paralysis, coma, or may occur, sometimes without known explanation. Surgical complications may include but are not limited to risk of infection, fluid accumulation in the surgical dissection site, including a seroma or hematoma, that requires additional surgery, wound drainage, bleeding, new numbness or weakness, vision changes/loss, spinal fluid leakage, non-healing and/or infected incision, headaches, difficulty or inability to swallow, hoarseness, hemopneumothorax, pneumothorax, impotence, retrograde ejaculation, vaginal dryness; injury to nerves, spinal cord, blood vessels, lymphatics or other vital organs (i.e., bowel injury, injury to the great vessels); heterotopic bone formation; complications related to the hardware such as screws, rods, cages including misplaced hardware, device failure, instrumentation at the wrong spine level, hardware fracture/breakage, or hardware loosening; vertebral failure of the spinal column above or below the newly placed hardware; retained surgical instrumentations or devices and the need for further surgery. * Medical risks of the planned spine surgery include but are not limited to generalized Infections to the whole body or local areas outside of the surgical site (sepsis), heart attack, bleeding, anaphylaxis, meningitis, seizure, epilepsy, hearing loss, burn shaver, laceration of the head or other areas of the body, bruising, hypersensitivity of the skin, bladder over distension; allergic reaction; shoulder injury related to positioning; fat, blood and air clots to other areas of the body like heart, lungs, brain; failure of internal organs such as lungs, kidneys, liver and excessive bleedin g. If blood transfusions are necessary, note that transfusions may cause intolerance reactions such as anaphylaxis or other complex reactions. Despite best efforts, the results of spine surgery might not heal in terms of bone, soft tissues such as skin, fascia, ligaments, and joints. Additionally, in order to achieve best possible results, spine surgery may be carried out beyond the initially planned levels and involve decompression, fusion including insertion of hardware at levels other than the original intended area of surgical interest change some portions of the procedure in order to ensure the best possible outcomes. With spine surgery and spinal fusion, there are different off label uses of instrumentation (devices, implants and hardware) as well as biological substances (bone morphogenic proteins, demineralized bone matrix) as well as using extra bone from allograft sources (i.e. cadaver bone) or autograft (iliac crest bone, ribs, or the spine itself). The patient has been given information about these practices and their inherent risks and benefits. [facility] is an educational center that serves as a training facility for neurosurgical and orthopedic [employer] and Nursing students. Physician assistants are medically trained surgical providers who function in the outpatient, inpatient, and operating room setting under the direct supervision of the attending surgeon. [facility] has multiple operating rooms with single and overlapping rooms running daily. They currently function under the required guidelines as produced by the [facility] Finance Committee with regards to the overlapping rooms and will continue to comply with changes to this policy as they occur. The requirements include and are complied with as follows: (1) the critical portions of the overlapping rooms will not occur at the same time, (2) the attending physician will be physically present during the critical portions of the procedure and immediately available during the entire case, and (3) a back-up attending is designated should the primary attending not be immediately available. The patient has had a chance to review all the listed information, has been given print outs detailing this information, and has had all his/her questions answered to their satisfaction. It was my pleasure to have seen and examined Mr. Damon. In our visit today we have had a chance to go over my understanding of our patient's current condition, the natural course history without intervention and various interventional options. Questions were invited and answered, and the patient wishes to proceed as outlined above. I have seen and examined the patient for 25 minutes and we have spent more than 50% of the time in repeat and detailed counseling about the patient's condition, its natural course history with out and as much as can be predicted with surgery and re-review of various surgical treatment options. In conclusion, Mr. Damon and requested we proceed with the above suggested surgery and are willing to accept risks and limitations of the suggested surgery as nature of the disease process and our best attempts at treatment for the cond ition. Thank you again for allowing us to be part of your patient's care. Please don't hesitate to contact me if you have any further questions. FOLLOW UP: * 2 weeks post op PLAN AT NEXT VISIT: * Post op check PATIENT EDUCATION: Medications Reviewed: YES In our visit today Mr. Damon and I have had a chance to go over my understanding of the patient's current condition, the natural course history without intervention and various interventional options. Questions were invited and answered, and the patient wishes to proceed as outlined above. I will be sure to keep you updated after Mr. Damon returns here for further follow-up. Thank you again for your referral. Please do not hesitate to contact me if you have any further questions. Signed and authenticated by: Jakob Baig [facility] [address] [place] [id number] This message is confidential, intended only for the named recipient(s) and may contain information that is privileged or exempt from disclosure under applicable law. If you are not the intended recipient(s), you are notified that the dissemination, distribution or copying of this information is strictly p rohibited. If you received this message in error, please notify the sender then delete this message. Past Medical History Past Medical History: Diabetes Mellitus, GERD/Reflux, Hyperlipidemia, Hypertension, Osteoarthritis (OA), Thyroid Disorder Additional Past Medical History / Comment(s): arthritis left thumb and L4-5, hypothyroidism, Type II diabetes mellitus History of Any Multi-Drug Resistant Organisms: None Reported Past Surgical History: Orthopedic Surgery Additional Past Surgical History / Comment(s): L THUMB ARTHROPLASTY, LT THUMB REPAIR/REATTACHMENT, RECONSTRUCTION LT ANKLE TENDONS, RT KNUCKLE REMOVED R/T INJURY, benign lesions removed from back. colonoscopy, pain clinic procedures Past Anesthesia/Blood Transfusion Reactions: No Reported Reaction Smoking Status: Never smoker - Past Family History Mother Family Medical History: Coronary Artery Disease (CAD), Diabetes Mellitus Father Family Medical History: Coronary Artery Disease (CAD), Diabetes Mellitus Medications and Allergies Home Medications Medication Instructions Recorded Confirmed Type Aspirin [Adult Low Dose Aspirin EC] 81 mg PO HS 12/19/20 12/30/23 History Empagliflozin [Jardiance] 25 mg PO QAM 12/19/20 12/30/23 History Levothyroxine Sodium [Synthroid] 175 mcg PO QAM 12/19/20 12/30/23 History Omeprazole 20 mg PO HS 12/19/20 12/30/23 History Rosuvastatin [Crestor] 10 mg PO HS 12/19/20 12/30/23 History lisinopriL [Zestril] 10 mg PO HS 12/19/20 12/30/23 History Ergocalciferol (Vitamin D2) 1,250 mcg PO MO 12/26/22 12/30/23 History [Drisdol (50,000 Iu)] Allergies Allergy/AdvReac Type Severity Reaction Status Date / Time No Known Allergies Allergy Verified 12/30/23 12:14 Physical Examination Osteopathic Statement: *. No significant issues noted on an osteopathic struct ural exam other than those noted in the History and Physical/Consult.
[~2024-01-05 09:29] MED LIST changes: -KETOROLAC 30 MG/ML 1 ML VIAL IVP NR; +LIDOCAINE 1% (10MG/ML) FOR IV START INTRADERMA PRN; +TRANEXAMIC 1,000 MG/100ML-NACL 1,000 MG in SALINE 1 100ML.BAG IVPB PRN
[2024-01-05 10:29] LABS: Glucose,Whole Blood 158 mg/dL (70-110)
[2024-01-05] MEDS: LACTATED RINGERS 1,000 ML IV SCH (10:29)
[2024-01-05] MEDS: DEXAMETHASONE SOD PHOSPHATE 4 MG/ML 1 ML VIAL IVP ONE (10:36)
[2024-01-05] MEDS: GABAPENTIN 300 MG CAP PO PRN (10:36)
[2024-01-05] MEDS: ONDANSETRON 4 MG/2 ML VIAL IVP PRN (10:36)
[2024-01-05] MEDS: ACETAMINOPHEN TAB 500 MG TAB PO PRN (10:36)
[2024-01-05] MEDS: THROMBIN (BOVINE) 5,000 UNIT VIAL TOPICAL ONE (13:31)
[2024-01-05] MEDS: LACTATED RINGERS 1,000 ML IV ONE ×2 (14:12→17:20)
[2024-01-05] MEDS: LIDOCAINE 2%-EPI 1:100,000 20 ML VIAL SQ ONE ×3 (14:56)
[2024-01-05] MEDS: BUPIVACAINE (PF) 0.5% 30 ML VIAL SQ ONE ×3 (14:56)
--- NOTE | 2024-01-05 15:05 | P.OP ---
Date of Procedure: 01/05/24 Preoperative Diagnosis: 1. L4-5 SPONDYLOSIS SEVERE WITH FORAMINAL STENOSIS 2. LOW BACK PAIN 3. LE RADICULOPATHY WITH PARESTHESIA 4. LE WEAKNESS Postoperative Diagnosis: 1. L4-5 SPONDYLOSIS SEVERE WITH FORAMINAL STENOSIS 2. LOW BACK PAIN 3. LE RADICULOPATHY WITH PARESTHESIA 4. LE WEAKNESS Procedure(s) Performed: 1. L4-5 POSTEROLATERAL AND INTERBODY FUSION 2. L4-5 LAMINOFORAMINOTOMY FOR DECOMPRESSION OF NEURAL ELEMENTS, MOBILIZATION AND CAGE PLACEMENT 3. L4-5 SEGMENTAL INSTRUMENTATION 4. L4-5 INSERTION OF BIOMECHANICAL DEVICE. 5. USE OF Scalado NAVIGATION FOR SCREW PLACEMENT USE OF IONM - ALL SCREWS TESTING > 20mA USE OF IO MICROSCOPE 48177, 17759, 29807, 90658, 49999 Implants: -ELMER EVEREST SCREW AND FELIX SYSTEM -GLOBUS SABLE CAGE 9-16 12MM 8 DEG -AUTOGRAFT, ALLOGRAFT, ALLOCELL, ARTHROCELL, MAGNATOS Anesthesia: GETA Surgeon: Jakob Cross Estimated Blood Loss (ml): 100 IV fluids (ml): 1,100 Urine output (ml): 0 Pathology: none sent Condition: stable Disposition: PACU Indications for Procedure: Mr. Damon is presenting for evaluation of low back and bilateral lower extremity pain, bilateral lower extremity numbness and tingling. It was my pleasure to have seen and examined Mr. Damon. In our visit today we have had a chance to go over subjective complaints, physical examination findings and treatments including the natural course history without intervention and various interventional options. The patients imaging demonstrates: CT [facility] at [facility] from07[facility]07/2023 of LumbarSpine: - Images reviewed with pt. Unenhanced CT of the lumbar spine was performed. Bone and soft tissue window settings are submitted as well as coronal and sagittal reconstructions. 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 L1-L2: Normal disc space height. No disc herniation protrusion or central stenosis. No facet joint arthropathy. No evidence for foraminal encroachment. L2-L3: Normal disc space height. No disc herniation protrusion or central stenosis. No facet joint arthropathy. No evidence for foraminal encroachment. L3-L4: Normal disc space height. Mild posterior disc bulge with minimal ventral thecal sac effacement. No evidence for central stenosis or disc herniation. Mild left foraminal encroachment. No facet joint arthropathy. L4-L5: There is moderate degenerative disc space narrowing. Moderate circumferential disc bulge greatest posteriorly. Subligamentous herniation is difficult to exclude. There is moderate central stenosis noted. Left greater than right neural foraminal encroachment. L5-S1: Normal disc space height. No disc herniation protrusion or central stenosis. No facet joint arthropathy. No evidence for foraminal encroachment. IMPRESSION: 1. Multilevel degenerative disc disease. 2. Moderate central stenosis at L4-5 as discussed above. 3. Varying degrees of foraminal encroachment. 4. Changes of dish as noted. Images re-reviewed in office today with the patient: - 05/07/23: Facet block flouro - 03/10/23: ESTELLE flouro - 03/10/22: MRI L spine - 02/17/22: Xray L spine Continued demonstration of severe spondylosis L4-5 with disc height loss dessication and progression of disease with increased stenosis, herniation, facet arthropathy and deformity related to disease progression. On physical exam, Mr. Damon demonstrates: A shooting, throbbing pain throughout the low back that radiates down into the bilateral lower extremities. He notes his leg pain starts around the anterior thigh and terminates around the bilateral ankle. The patient states his leg pain is associated with continued numbness and tingling bilaterally. He states his pain worsens after prolonged standing and walking or when going from a seated to standing position. The patient notes home ice therapies exacerbates his lumbar pain. The patient notes increased urination over the last 3 to 4 weeks. I have explained to the patient that as their condition progresses it will cause further neurological deficits and eventual paralysis. Based on the patients imaging, physical exam, and the rapid progression and disabling nature of their symptoms, at this time I recommend surgery in the form of a: MIS L4-5 posterolateral interbody fusion. I discussed the risk and benefits of this procedure at length with Mr. Damon. The patient agreed to considered pursuing the procedure above mentioned. Prior to surgery, she should follow up with her PCP (Cardio, ID, IM etc) for clearance. Questions were invited and answered, and the patient wishes to proceed as outlined below. Currently, I am recommendin.MINIMALLY INVASIVE L4-5 POSTEROLATERAL AND INTERBODY DECOMPRESSION AND FUSION 2.Review of surgical risks and benefits as well as an educational packet on the proposed surgical procedure. Description of Procedure: L4-L5 MIS TLIF ONEAL The patient was seen and examined in the preoperative area. All preoperative protocols were followed. Informed consent was obtained, risks and benefits of the procedure were discussed at length. Risks including bleeding infection damage to the surrounding tissue and risk of reoperation were discussed with the patient. Risk of anesthesia up to and including was discussed with the patient. These are outlined in the risk review. They were willing to accept these risks and all the risks of surgery. The patient was given a weight-based dose of antibiotics in the form of 2 g Ancef. The patient was seen and evaluate d by the anesthesia team who deemed them fit for surgery. The site was marked, the patient was willing to proceed with the procedure. The patient was transferred to the operative suite by the Department of anesthesia. They were then drifted off to sleep by the department anesthesia and GETA was performed. The patient tolerated this well. Shields catheter was placed by nursing staff, a-traumatically. Once confirmation of lines and ventilation the patient was transferred to a prone Eric table very carefully. All bony prominences including wrists, elbows, axilla, chest, hips, and thighs, and feet were padded very well. Special attention was paid to the genitalia, and these were padded accordingly. SCDs were placed on bilateral lower extremities and were connected. Arms were well padded and placed on arm boards up and out in the 90/90 position. Once in position, again we confirmed good ventilation capabilities and that lines were running appropriately. The patients Lumbar spine was then exposed. 1010s were placed outlining the incision site. Standard alcohol was used to clean the incision site and allowed to dry. C-arm was used to needle localize the pedicles at L4-5 and bio-tu the patient and confirm level for incision which was marked with a skin marker. Operative briefing was performed with all teams and everyone in agreement to proceed. The patient was then prepped and draped in a normal sterile fashion. Timeout was then performed, and all parties agreed with the procedure to be performed. Skin nicks made and pins placed in the PSIS on the right for the Elmer tracker. 3D Zheim spin was then registered and confirmed to be accurate. Navigated jamshidi and drill-guide were then used to target pedicles bilaterally at L4 and L5. Once accessed, wires were placed in their void. This was repeated at L5 bilaterally. Skin incision was then made along these wires and a perfect scalpel was used over the wire to create a path and measure screw length. Screws were then placed over wires on the contralateral side. Once the screw was at the back of the body wire was removed. The screws were confirmed to be in good position on AP and lateral. We then tested screws and they all tested above 20 mA. Attention was then turned to interbody fusion at L4-5. Tubular retractor system was placed at the interspace of L4-5 using a biplanar c arm. Once in position and dilated up to 26mm tube it was locked to the bed and confirmed in good position. Microscope was then brought in for visualization. Limited myomectomy was performed and laminectomy, complete facetectomy and foraminotomy performed at L4-5 using high speed kiley and Kerrison rongeur. The ligamentum was removed and the dural sac decompressed. Exiting and traversing roots visualized and decompressed. Neural elements were then protected, and disc space accessed with an osteotome. Sequential shaving then done under lateral imaging and complete discectomy performed using jignesh, pituitary and curettes. Once good bleeding endplates accomplished and good height hinduism with trials, a combination of autograft, allograft and synthetic placed anterior in the disc space. The cage was then selected and impacted into place under lateral imaging. The cage was then expanded restoring height, lordosis and alignment. The cage was backfilled with bone graft through a funnel. The hand inserter operator was removed and the area inspected. Good cage placement, stable cage and no injuries. Area was irrigated copiously, and meticulous hemostasis achieved. The tubular retractor was then removed under direct visualization. Screws were then selected and placed over the previously placed wires on the ipsilateral side. This was done in the fashion described above. Screws were then tested, and all tested above 20 mA. Shells were then placed on the tabs. Felix length was then measured, and rods selected. They were then placed through the MIS tabs, subfascial and locked into L5 bilateral and sequentially reduced into L4 for listhesis reduction. These were then locked into place with set screws and finally tightened. Felix holders removed and images taken showing good placement of rods, good lordosis and hinduism of height. Tabs were broken off. Wounds were then copiously irrigated with NSS. [place] used for TP decortication and mixture of MagnatOs, allograft and autograft packed posterolateral. Fascia was then closed with 0 Vircyl on a Scorpion suture passer for MIS closure. Deep subq closed with 0 Vicryl. Superficial subq closed with 2-0 Vicryl and skin with adam. Wound edges approximated very well. Wound was then cleaned with alcohol and dried. Wounds dressed in Optifoam dressings. The patient was then transferred off the table back to their hospital bed a- traumatically. They were extubated by the department of anesthesia. They were then transferred to PACU in stable condition having tolerated the procedure with no complications.
--- NOTE | 2024-01-05 15:23 | FL ---
EXAMINATION TYPE: FL guidance operating room DATE OF EXAM: 01/05/2024 HISTORY: Fluoroscopy time Total dose area product (DAP) in uGy*m?, mGy*cm? (or similar): 4034.65 IMPRESSION: 1. Fluoroscopy time.
[2024-01-05] MEDS: HYDROmorphone 0.5 MG/0.5 ML SYRINGE IVP PRN (15:31)
[2024-01-05 15:40] LABS: Glucose,Whole Blood 188 mg/dL (70-110)
[2024-01-05] MEDS ORDERED: SENNOSIDES-DOCUSATE SODIUM 1 EACH TAB PO PRN (17:22)
[2024-01-05] MEDS ORDERED: CYCLOBENZAPRINE 5 MG TAB PO PRN (17:22)
[2024-01-05 20:19] LABS: Glucose,Whole Blood 130 mg/dL (70-110)
[2024-01-05] MEDS: HYDROcodone/APAP 5-325MG 1 EACH TAB PO PRN (21:39)
[2024-01-05] MEDS: GABAPENTIN 300 MG CAP PO SCH (21:40)
[2024-01-05] MEDS: ACETAMINOPHEN TAB 325 MG TAB PO SCH (21:40)
[2024-01-05] MEDS ORDERED: DEXTROSE 50% SYRINGE 50 ML IVP PRN ×2 (21:45)
[2024-01-06] MEDS: HYDROmorphone 1 MG/ML 1 ML SYRINGE IVP PRN (02:22)
[2024-01-06 05:40] LABS: Glucose,Whole Blood 120 mg/dL (70-110)
[2024-01-06] MEDS: HYDROcodone/APAP 10-325MG 1 EACH TAB PO PRN ×2 (05:50→23:11)
--- NOTE | 2024-01-06 06:04 | P.CONS ---
History of Present Illness - Reason for Consult Consult date: 01/05/24 Postop medical management - Chief Complaint Scheduled back surgery - History of Present Illness 53-year-old male hypertension diabetes mellitus Patient coming in for scheduled lumbar spine fusion tolerated procedure well no observed immediate postoperative complications denies any chest pain trouble breathing nausea vomiting denies any new focal neurodeficits in his lower extremities. Patient tolerated p.o. intake patient able to urinate multiple times he has not got up and moved yet. He denies any tobacco smoking or alcohol he admits to occasional marijuana for pain control review of systems Pertinent positives as noted in HPI. All other systems were reviewed and are negative on exam Constitutional: No acute distress, conversant, pleasant Eyes: Anicteric sclerae, moist conjunctiva, Pupils equal round reactive to light ENMT: NC/AT Oropharynx clear, no erythema, or exudates Lungs: Clear to auscultation Clear to percussion Normal respiratory effort, no accessory muscle use Cardiovascular: Heart regular in rate and rhythm, No murmurs, gallops, or rubs No peripheral edema Abdominal: Soft Nontender, no guarding, rebound or rigidity Abdomen moving with respiration Extremities: No digital cyanosis No clubbing Pedal pulses intact and symmetrical Radial pulses intact and symmetrical No calf tenderness Psychiatric: Alert and oriented to person, place and time Appropriate affect fair judgement Neuro Muscles Strength 5/5 in all 4 extremities Sensation to light touch grossly present throughout Cranial nerves II-XII grossly intact Past Medical History Past Medical History: Diabetes Mellitus, GERD/Reflux, Hyperlipidemia, Hypertension, Osteoarthritis (OA), Thyroid Disorder Additional Past Medical History / Comment(s): arthritis left thumb and L4-5, hypothyroidism, Type II diabetes mellitus History of Any Multi-Drug Resistant Organisms: None Reported Past Surgical History: Orthopedic Surgery Additional Past Surgical History / Comment(s): L THUMB ARTHROPLASTY, LT THUMB REPAIR/REATTACHMENT, RECONSTRUCTION LT ANKLE TENDONS, RT KNUCKLE REMOVED R/T INJURY, benign lesions removed from back. colonoscopy, pain clinic procedures Past Anesthesia/Blood Transfusion Reactions: No Reported Reaction Past Psychological History: No Psychological Hx Reported Smoking Status: Never smoker Past Alcohol Use History: Rare Additional Past Alcohol Use History / Comment(s): chewed tobacco x 30 yrs, quit 2007. 1-2 drinks/year Past Drug Use History: Marijuana Additional Drug Use History / Comment(s): SMOKES MARIJUANA 1-2x/DAY WHEN NEEDED FOR PAIN-INSTRUCTED TO REFRAIN FROM USE FOR AT LEAST 24 HOURS PRIOR TO PROCEDURE - Past Family History Mother Family Medical History: Coronary Artery Disease (CAD), Diabetes Mellitus Father Family Medical History: Coronary Artery Disease (CAD), Diabetes Mellitus Medications and Allergies Home Medications Medication Instructions Recorded Confirmed Type Aspirin [Adult Low Dose Aspirin EC] 81 mg PO HS 12/19/20 12/30/23 History Empagliflozin [Jardiance] 25 mg PO QAM 12/19/20 12/30/23 History Levothyroxine Sodium [Synthroid] 175 mcg PO QAM 12/19/20 12/30/23 History Omeprazole 20 mg PO HS 12/19/20 12/30/23 History Rosuvastatin [Crestor] 10 mg PO HS 12/19/20 12/30/23 History lisinopriL [Zestril] 10 mg PO HS 12/19/20 12/30/23 History Ergocalciferol (Vitamin D2) 1,250 mcg PO MO 12/26/22 12/30/23 History [Drisdol (50,000 Iu)] Allergies Allergy/AdvReac Type Severity Reaction Status Date / Time No Known Allergies Allergy Verified 01/05/24 09:59 Physical Exam Vitals: Vital Signs Temp Pulse Pulse Resp BP Pulse Ox 01/05/24 20:56 78 119/76 97 01/05/24 20:41 76 118/76 95 01/05/24 20:26 73 122/77 96 01/05/24 19:56 73 128/91 97 01/05/24 19:41 97.8 F 84 136/79 93 L 01/05/24 18:45 85 18 140/86 97 01/05/24 18:15 87 14 143/84 97 01/05/24 17:45 82 14 146/80 94 L 01/05/24 17:15 98 14 141/74 98 01/05/24 16:45 79 18 138/71 95 01/05/24 16:15 84 17 134/70 94 L 01/05/24 16:00 89 16 139/72 94 L 01/05/24 15:45 88 14 138/71 92 L 01/05/24 15:30 82 17 130/70 97 01/05/24 15:17 97.5 F L 90 16 138/74 96 01/05/24 10:09 98.1 F 75 16 133/71 97 Intake and Output 01/05/24 01/05/24 01/05/24 06:59 14:59 22:59 Intake Total 1750 350 Output Total 100 Balance 1650 350 Intake: IV 1750 350 Output: Estimated Blood Loss 100 Other: Weight 110.8 kg 110.8 kg Results Labs: Abnormal Lab Results - Last 24 Hours (Table) 01/05/24 01/05/24 01/05/24 Range/Units 10:28 15:38 20:16 POC Glucose (mg/dL) 158 H 188 H 130 H (70-110) mg/dL Assessment and Plan Assessment: Hypertension controlled Continue lisinopril Diabetes mellitus check A1c Insulin sliding scale Hypothyroid Resume levothyroxine Hyperlipidemia Resume statin Chronic low back pain status post lumbar fusion postoperative day 0 Management per primary orthopedic team Patient stable overall from medical standpoint Check CBC BMP in the morning Thank you for this consultation
[2024-01-06] MEDS: INSULIN ASPART (NovoLOG) 100 UNIT/ML VIAL SQ SCH (06:12)
[2024-01-06] MEDS: LEVOTHYROXINE 88 MCG TAB PO SCH (06:21)
--- NOTE | 2024-01-06 09:11 | P.PN ---
Subjective Progress Note Date: 01/06/24 Principal diagnosis: 1. L4-5 spondylosis with stenosis 2. L4-5 facet arthrosis 3. L4-5 radiculopathy 4. Low back pain Patient seen and examined this morning. Patient is resting comfortably in bed. Patient is currently denying any back pain or lower extremity radiculopathy since the procedure. Patient does report that he has not been up since procedure. Informed him that physical therapy will be in to work with him today. Patient feels that he is comfortable with going home later today. We will reassess this afternoon. Continue to encourage patient to increase his activity and to be sitting in chair for all meals. Objective - Vital Signs Vital signs: Vital Signs Temp 98 F 01/06/24 01:35 Pulse 90 01/06/24 01:35 Resp 16 01/06/24 01:35 BP 142/86 01/06/24 01:35 Pulse Ox 95 01/06/24 01:35 FiO2 Intake & Output 01/05/24 01/06/24 01/06/24 18:59 06:59 18:59 Intake Total 2100 Output Total 100 3500 Balance 2000 -3500 Weight 110.8 kg 110.8 kg Intake: IV 2100 Output: Urine 3500 Estimated Blood Loss 100 Other: Voiding Method Urinal # Voids 2,500 - Exam Physical Examination General: The patient is awake and alert, in no acute distress Skin: Skin is warm and dry with no obvious rashes or lesions. Surgical incisions to the lumbar spine, dressings are clean dry and intact. Eye: Pupils are equal, round and reactive to light, extra-ocular movements are intact; there is normal conjunctiva bilaterally. Neck: The neck is supple, there is no tenderness and ROM intact. Cardiovascular: There is a regular rate and rhythm. No murmur, rub or gallop is appreciated. Respiratory: Lungs are clear to auscultation, respirations are non-labored, breath sounds are equal. Gastrointestinal: Soft, non-distended, non-tender abdomen. Back: There is no tenderness to palpation in the midline, paralumbar, parathoracic or buttocks region. There is no obvious deformity . Musculoskeletal: ROM limited secondary to pain and stiffness from surgical procedure. Muscle strength in all major muscle groups of bilateral upper extremities 5/5, bilateral lower extremities 4/5. Neurological: CN 2-12 intact. There are no obvious motor or sensory deficits. Movement and coordination equal and intact. Sensory exam to light touch intact C 5-T1 and intact from L2-S1. Reflexes 2/4 in bilateral upper and lower extremities. Negative Hoffmans, babinski, and clonus signs. Psychiatric: Cooperative, appropriate mood & affect, normal judgment. - Labs Labs: Abnormal Lab Results - Last 24 Hours (Table) 01/05/24 01/05/24 01/05/24 Range/Units 10:28 15:38 20:16 POC Glucose (mg/dL) 158 H 188 H 130 H (70-110) mg/dL 01/06/24 Range/Units 05:38 POC Glucose (mg/dL) 120 H (70-110) mg/dL Assessment and Plan Assessment: Postop day 1: L4-L5 posterior lumbar interbody fusion 1. L4-5 spondylosis with stenosis 2. L4-5 facet arthrosis 3. L4-5 radiculopathy 4. Low back pain Plan: -Appreciate vocational rehabilitation consultant and team management. -Activity: Ambulate QID, OOB all meals, up and about, limit lifting bending twisting to less than 5 lbs. Use walker or cane if needed for stability. -Daily PT/OT, increase ambulation strength and balance. -Pain control: Adequate at this time -Meds: reviewed -GI ppx: senna, Miralax -DVT PPX: Heparin -Hygiene: Shower today. Maintain dressing clean and dry. Meticulous cleaning after BMs away from the incision site -Encourage IS 10x/hr -Dispo: Anticipate discharge home later today *I reviewed and discussed this case with my attending Dr. Cross, whom has reviewed this chart and films and is in agreement with assessment and plan of care as outlined above. I have personally seen and examined the patient, performed the documentation and the assessment and plan as written. Number of minutes spent on the visit: 20m.
[2024-01-06 09:21] LABS: BUN/Creat Ratio 19.71 Ratio (12.00-20.00); Blood Urea Nitrogen 13.8 mg/dL (9.0-27.0); Calcium 8.9 mg/dL (8.7-10.3); Carbon Dioxide 18.3 mmol/L (21.6-31.8); Chloride 105 mmol/L (96-109); Glucose 112 mg/dL (70-110); Potassium 3.9 mmol/L (3.5-5.5); Sodium 138 mmol/L (135-145)
[2024-01-06 09:26] LABS: Basophils # (A) 0.01 X 10*3/uL (0.00-0.10); Basophils % (A) 0.1 %; Eosinophils # (A) 0.04 X 10*3/uL (0.04-0.35); Eosinophils % (A) 0.4 %; HCT 45.2 % (39.6-50.0); HGB 14.8 g/dL (13.0-17.0); Lymphocytes # (A) 2.22 X 10*3/uL (0.90-5.00); Lymphocytes % (A) 20.6 %; MCH 27.2 pg (27.0-32.0); MCHC 32.7 g/dL (32.0-37.0); MCV 82.9 FL (80.0-97.0); Mean Platelet Volume 10.1 FL (9.5-12.2); Monocytes # (A) 1.16 X 10*3/uL (0.20-1.00); Monocytes % (A) 10.8 %; NRBC Per 100 WBC 0 X 10*3/uL (0.00-0.01); Neutrophils # (A) 7.27 X 10*3/uL (1.80-7.70); Neutrophils % (A) 67.5 %; Platelet Count 240 X 10*3/uL (140-440); RBC 5.45 X 10*6/uL (4.40-5.60); RDW 13.7 % (11.5-14.5); WBC 10.77 X 10*3/uL (4.50-10.00)
[2024-01-06] MEDS: lisinopriL 10 MG TAB PO SCH (09:47)
[2024-01-06 11:37] LABS: Glucose,Whole Blood 194 mg/dL (70-110)
--- NOTE | 2024-01-06 12:54 | CT ---
EXAMINATION TYPE: CT lumbar spine wo con DATE OF EXAM: 01/05/2024 COMPARISON: 11/27/2023 HISTORY: s/p L4-L5 PLIF CT DLP: 1499.8 mGycm CONTRAST: None TECHNIQUE: CT of the lumbar spine is performed on a spiral scan at 3 mm thick sections. Reconstructed images are performed in the coronal and sagittal planes. FINDINGS: Anterior flowing calcification is present T10-L2. Pedicle screws are present at L4-5 with a disc spacer at the L4-5 disc level. Vertebral body alignment is preserved. T12-L1: No focal disc herniation or significant disc bulge is evident. No spinal canal stenosis or neural foraminal stenosis is present. L1-L2: No focal disc herniation or significant disc bulge is evident. No spinal canal stenosis or n eural foraminal stenosis is present L2-L3: Mild disc bulge has anterior thecal sac contact. No AP spinal canal stenosis is present. Neura l foramen are patent. Facet degenerative changes are present. L3-L4: Broad-based disc bulge is present with mild anterior thecal sac flattening. No AP spinal canal stenosis is present. Facet hypertrophy is present. Neural foramen are patent. L4-L5: Beam hardening Artifact from a disc spacer at L4-5 is evident. Pedicle screws are also present . There is severe limitation at this level. Obvious spinal canal stenosis is not identified. L5-S1: No focal disc herniation or significant disc bulge is evident. No spinal canal stenosis or n eural foraminal stenosis is present IMPRESSION: 1. Postsurgical change L4-5 with a disc spacer and pedicle screws. 2. Some disc bulging is noted L2-3 and L3-4 with anterior thecal sac flattening discussed above
--- NOTE | 2024-01-06 16:12 | P.PN ---
Subjective Progress Note Date: 01/06/24 Hospital course: Patient is a 53-year-old male with a past medical history of hypertension, hyperlipidemia, hypothyroidism, GERD, type II mkh-hqlmhvi-cdkehacon diabetes mellitus, and osteoarthritis with peripheral neuralgias. He is currently admitted under orthospine surgery team status post L4-L5 decompression and fusion with biomechanical cage placement. Surgical procedure was completed by Dr. Cross on 12/06/2023. We were consulted for medical management throughout hospitalization. Physical exam: Patient seen and fully evaluated at bedside this morning. He was sitting up in the chair reports moderate to surgical pain at this time currently rating 7 out of 10. He denies having any postoperative nausea or vomiting tolerating oral intake well. Patient reports urinating without any difficulties. Patient denies having any numbness/tingling/weakness in his extremities. Vital signs reviewed and stable. General: Nontoxic, no distress and appears stated age. Derm: Skin warm and dry, normal coloration for ethnicity. Head: Atraumatic, normocephalic and symmetric. Eyes: EOMs intact, no lid lag, and anicteric sclera Mouth: no lip lesions, mucus membranes moist Cardiovascular: regular rate and rhythm with normal S1S2, no murmur, positive posterior tibial pulses bilaterally, and cap refill < 2 seconds. Lungs: Respirations even, regular, and unlabored on room air. Lungs CTA bilaterally, no rhonchi, no rales, no wheezing, and no accessory muscle usage. Abdominal: soft, nontender to palpation, no guarding, no appreciable organomegaly Ext: ROM intact. No gross muscle atrophy, no edema, no contractures Neuro: Speech clear, face symmetrical and CN II-XII grossly intact with no noted focal neuro deficits Psych: Alert and oriented to person, place, time, and situation. Appropriate and pleasant affect. Assessment and Plan of Care: Status post L4-L5 lumbar decompression and fusion with biomechanical cage placement -Management per primary admitting orthospine surgery team including DVT prophylaxis, wound/dressing management, pain management, PT/OT. Diabetes mellitus with hyperglycemia. Hold Jardiance and place patient on glycemic protocol with NovoLog sliding scale to maintain tight glycemic control throughout hospitalization. Hemoglobin A1c 8.4%. Hypothyroidism Continue daily medication regimen with levothyroxine 176 mcg daily. Hypertension Continue daily medication regimen with lisinopril 10 mg daily. Hyperlipidemia Continue daily medication regimen with atorvastatin 20 mg nightly. Data reviewed: Postoperative labs reviewed. CBC showing mild postoperative leukocytosis with WBC count of 10.77 and stable postoperative hemoglobin of 14.8. BMP showing hypocarbia with bicarb of 18.3 and elevated anion gap of 14.70. Blood glucose 112. Magnesium 1.8. Vital signs reviewed. Blood pressure 125/76, heart rate 90, respiratory rate 17, temp 98.5 F, and SpO2 of 95% on room air. Thank you for allowing us to participate in the care of this pleasant patient. Do not hesitate to contact us with questions. Someone can be reached from the [facility] hospitalist group all hours of the day at [phone] or via [employer]. Patient was seen independently by Nurse Pracitioner. This document was prepared using [employer] dictation software. Please allow for errors in senior fire protection engineer, while rare they do occur. Objective - Vital Signs Vital signs: Vital Signs Temp 98.5 F 01/06/24 07:53 Pulse 90 01/06/24 07:53 Resp 17 01/06/24 07:53 BP 125/76 01/06/24 07:53 Pulse Ox 95 01/06/24 07:53 FiO2 Intake & Output 01/05/24 01/06/24 01/06/24 18:59 06:59 18:59 Intake Total 2100 Output Total 100 3500 Balance 2000 -3500 Weight 110.8 kg 110.8 kg Intake: IV 2100 Output: Urine 3500 Estimated Blood Loss 100 Other: Voiding Method Urinal # Voids 2,500 - Labs CBC & Chem 7: 01/06/24 05:00 01/06/24 05:00 Labs: Abnormal Lab Results - Last 24 Hours (Table) 01/05/24 01/05/24 01/05/24 Range/Units 10:28 15:38 20:16 POC Glucose (mg/dL) 158 H 188 H 130 H (70-110) mg/dL 01/06/24 Range/Units 05:38 POC Glucose (mg/dL) 120 H (70-110) mg/dL
[2024-01-06 16:53] LABS: Glucose,Whole Blood 182 mg/dL (70-110)
[2024-01-06] MEDS: CYCLOBENZAPRINE 5 MG TAB PO SCH (17:09)
[2024-01-06 20:34] LABS: Glucose,Whole Blood 185 mg/dL (70-110)
[2024-01-06] MEDS: ATORVASTATIN 20 MG TAB PO SCH (21:10)
[2024-01-06] MEDS: PANTOPRAZOLE 40 MG TABLET PO SCH (21:10)
[2024-01-07 05:41] LABS: Glucose,Whole Blood 142 mg/dL (70-110)
--- NOTE | 2024-01-07 08:31 | P.PN ---
Subjective Progress Note Date: 01/07/24 Principal diagnosis: 1. L4-5 spondylosis with stenosis 2. L4-5 facet arthrosis 3. L4-5 radiculopathy 4. Low back pain Patient seen and examined this morning. Patient is resting comfortably in bed. Patient states he had increased pain in his low back after sitting in chair for approx 3 hours yesterday. He does report his pain is managed on current regimen. LSO brace is at bedside. Continue to encourage patient to increase his activity and to be sitting in chair for all meals. Patient is progressing well towards discharge possibly later this afternoon. Objective - Vital Signs Vital signs: Vital Signs Temp 98.9 F 01/07/24 02:29 Pulse 81 01/07/24 02:29 Resp 16 01/07/24 02:29 BP 125/78 01/07/24 02:29 Pulse Ox 94 L 01/07/24 02:29 FiO2 Intake & Output 01/06/24 01/07/24 01/07/24 18:59 06:59 18:59 Output Total 800 1800 Balance -800 -1800 Output: Urine 800 1800 Other: Voiding Method Urinal - Exam Physical Examination General: The patient is awake and alert, in no acute distress Skin: Skin is warm and dry with no obvious rashes or lesions. Surgical incisions to the lumbar spine, dressings are clean dry and intact. Eye: Pupils are equal, round and reactive to light, extra-ocular movements are intact; there is normal conjunctiva bilaterally. Neck: The neck is supple, there is no tenderness and ROM intact. Cardiovascular: There is a regular rate and rhythm. No murmur, rub or gallop is appreciated. Respiratory: Lungs are clear to auscultation, respirations are non-labored, breath sounds are equal. Gastrointestinal: Soft, non-distended, non-tender abdomen. Back: There is no tenderness to palpation in the midline, paralumbar, parathoracic or buttocks region. There is no obvious deformity . Musculoskeletal: ROM limited secondary to pain and stiffness from surgical procedure. Muscle strength in all major muscle groups of bilateral upper e xtremities 5/5, bilateral lower extremities 4/5. Neurological: CN 2-12 intact. There are no obvious motor or sensory deficits. Movement and coordination equal and intact. Sensory exam to light touch intact C5-T1 and intact from L2-S1. Reflexes 2/4 in bilateral upper and lower extremities. Negative Hoffmans, babinski, and clonus signs. Psychiatric: Cooperative, appropriate mood & affect, normal judgment. - Labs CBC & Chem 7: 01/06/24 05:00 01/06/24 05:00 Labs: Abnormal Lab Results - Last 24 Hours (Table) 01/06/24 01/06/24 01/06/24 Range/Units 05:00 05:00 05:00 WBC 10.77 H (4.50-10.00) X 10*3/uL Immature Gran # 0.07 H (0.00-0.04) X 10*3/uL Monocytes # 1.16 H (0.20-1.00) X 10*3/uL Carbon Dioxide 18.3 L (21.6-31.8) mmol/L Anion Gap 14.70 H (4.00-12.00) mmol/L Glucose 112 H (70-110) mg/dL POC Glucose (mg/dL) (70-110) mg/dL Hemoglobin A1c 8.4 H (<=6.0) % 01/06/24 01/06/24 01/06/24 Range/Units 11:34 16:51 20:33 WBC (4.50-10.00) X 10*3/uL Immature Gran # (0.00-0.04) X 10*3/uL Monocytes # (0.20-1.00) X 10*3/uL Carbon Dioxide (21.6-31.8) mmol/L Anion Gap (4.00-12.00) mmol/L Glucose (70-110) mg/dL POC Glucose (mg/dL) 194 H 182 H 185 H (70-110) mg/dL Hemoglobin A1c (<=6.0) % 01/07/24 Range/Units 05:40 WBC (4.50-10.00) X 10*3/uL Immature Gran # (0.00-0.04) X 10*3/uL Monocytes # (0.20-1.00) X 10*3/uL Carbon Dioxide (21.6-31.8) mmol/L Anion Gap (4.00-12.00) mmol/L Glucose (70-110) mg/dL POC Glucose (mg/dL) 142 H (70-110) mg/dL Hemoglobin A1c (<=6.0) % Assessment and Plan Assessment: Postop day 2: L4-L5 posterior lumbar interbody fusion 1. L4-5 spondylosis with stenosis 2. L4-5 facet arthrosis 3. L4-5 radiculopathy 4. Low back pain Plan: -Appreciate healthcare consultant and team management. -Activity: Ambulate QID, OOB all meals, up and about, limit lifting bending twisting to less than 5 lbs. Use walker or cane if needed for stability. -Daily PT/OT, increase ambulation strength and balance. -LSO brace to be worn when up and about, do not wear in shower or bed. -Pain control: Adequate at this time -Meds: reviewed -GI ppx: senna, Miralax -DVT PPX: Heparin -Hygiene: Shower today. Maintain dressing clean and dry. Meticulous cleaning after BMs away from the incision site -Encourage IS 10x/hr -Dispo: Anticipate discharge home later today *I reviewed and discussed this case with my attending Dr. Cross, whom has reviewed this chart and films and is in agreement with assessment and plan of care as outlined above. I have personally seen and examined the patient, performed the documentation and the assessment and plan as written. Number of minutes spent on the visit: 20m.
[2024-01-07] MEDS: HEPARIN SODIUM,PORCINE 5,000 UNIT/ML 1 ML VIAL SQ SCH (08:51)
[2024-01-07] MEDS: SENNOSIDES-DOCUSATE SODIUM 1 EACH TAB PO SCH (08:51)
[2024-01-07 11:19] LABS: Glucose,Whole Blood 146 mg/dL (70-110)
[2024-01-07] MEDS: MAGNESIUM HYDROXIDE 2,400 MG/30 ML CUP PO PRN (12:21)
[2024-01-07 14:52] VITALS: BP 122/82; PULSE 85; RESP 15; TEMP 98.2
--- NOTE | 2024-01-07 14:56 | P.PN ---
Subjective Progress Note Date: 01/07/24 Hospital course: Patient is a 53-year-old male with a past medical history of hypertension, hyperlipidemia, hypothyroidism, GERD, type II tqa-gjrhqbu-kxqucgcxv diabetes mellitus, and osteoarthritis with peripheral neuralgias. He is currently admitted under orthospine surgery team status post L4-L5 decompression and fusion with biomechanical cage placement. Surgical procedure was completed by Dr. Cross on 12/06/2023. We were consulted for medical management throughout hospitalization. Subjective: No new complaints. Pain is better controlled. Still working with PT. Physical exam: Vital signs reviewed and stable. General: Nontoxic, no distress and appears stated age. Derm: Skin warm and dry, normal coloration for ethnicity. Head: Atraumatic, normocephalic and symmetric. Eyes: EOMs intact, no lid lag, and anicteric sclera Mouth: no lip lesions, mucus membranes moist Cardiovascular: regular rate and rhythm with normal S1S2, no murmur, positive posterior tibial pulses bilaterally, and cap refill < 2 seconds. Lungs: Respirations even, regular, and unlabored on room air. Lungs CTA bilaterally, no rhonchi, no rales, no wheezing, and no accessory muscle usage. Abdominal: soft, nontender to palpation, no guarding, no appreciable organomegaly Ext: ROM intact. No gross muscle atrophy, no edema, no contractures Neuro: Speech clear, face symmetrical and CN II-XII grossly intact with no noted focal neuro deficits Psych: Alert and oriented to person, place, time, and situation. Appropriate and pleasant affect. Assessment and Plan of Care: Status post L4-L5 lumbar decompression and fusion with biomechanical cage placement -Management per primary admitting orthospine surgery team including DVT prophylaxis, wound/dressing management, pain management, PT/OT. Diabetes mellitus with hyperglycemia. Hold Jardiance and place patient on glycemic protocol with NovoLog sliding scale to maintain tight glycemic control throughout hospitalization. Hemoglobin A1c 8.4%. Hypothyroidism Continue daily medication regimen with levothyroxine 176 mcg daily. Hypertension Continue daily medication regimen with lisinopril 10 mg daily. Hyperlipidemia Continue daily medication regimen with atorvastatin 20 mg nightly. Data reviewed: Postoperative labs reviewed. CBC showing mild postoperative leukocytosis with WBC count of 10.77 and stable postoperative hemoglobin of 14.8. BMP showing hypocarbia with bicarb of 18.3 and elevated anion gap of 14.70. Blood glucose 1 12. Magnesium 1.8. Vital signs reviewed. Blood pressure 125/76, heart rate 90, respiratory rate 1 7, temp 98.5 F, and SpO2 of 95% on room air. Thank you for allowing us to participate in the care of this pleasant patient. Do not hesitate to contact us with questions. Someone can be reached from the [facility] hospitalist group all hours of the day at [phone] or via perfect serve. This document was prepared using [employer] dictation software. Please allow for errors in blind aide, while rare they do occur. Objective - Vital Signs Vital signs: Vital Signs Temp 98.2 F 01/07/24 14:00 Pulse 85 01/07/24 14:00 Resp 15 01/07/24 14:00 BP 122/82 01/07/24 14:00 Pulse Ox 93 L 01/07/24 14:00 FiO2 Intake & Output 01/06/24 01/07/24 01/07/24 18:59 06:59 18:59 Output Total 800 1800 Balance -800 -1800 Output: Urine 800 1800 Other: Voiding Method Urinal - Labs CBC & Chem 7: 01/06/24 05:00 01/06/24 05:00 Labs: Abnormal Lab Results - Last 24 Hours (Table) 01/06/24 01/06/24 01/07/24 Range/Units 16:51 20:33 05:40 POC Glucose (mg/dL) 182 H 185 H 142 H (70-110) mg/dL 01/07/24 Range/Units 11:17 POC Glucose (mg/dL) 146 H (70-110) mg/dL
[2024-01-11] MEDS ORDERED: ERGOCALCIFEROL 1,250 MCG (50,000 IU) CAPSULE PO SCH (10:00)
== END 2024-01-07 15:35 | disposition home or self-care (01) ==
LOC: OR 09:29 → 4SSUR 15:07 → OR 01-07 15:35
PROVIDERS: ATTEND Orthopaedic Surgery
DX: M48.061 Spinal stenosis, lumbar region without neurogenic claudication (principal); M51.16 Intervertebral disc disorders with radiculopathy, lumbar region; M47.26 Other spondylosis with radiculopathy, lumbar region; R53.1 Weakness; E03.9 Hypothyroidism, unspecified; I10 Essential (primary) hypertension; E11.69 Type 2 diabetes mellitus with other specified complication; E78.5 Hyperlipidemia, unspecified; K21.9 Gastro-esophageal reflux disease without esophagitis; E11.65 Type 2 diabetes mellitus with hyperglycemia; E66.9 Obesity, unspecified; Z68.39 Body mass index [BMI] 39.0-39.9, adult; Z79.84 Long term (current) use of oral hypoglycemic drugs; Z79.890 Hormone replacement therapy; Z79.899 Other long term (current) drug therapy; Z79.85 Long-term (current) use of injectable non-insulin antidiabetic drugs; Z79.82 Long term (current) use of aspirin
CPT/HCPCS: 97116; 97161; 97535; 97166; 80048; 83735; 85025; 83036; 72100; 72131; 22633; 22853; 22840; 61783; 20930; 20936; C1713 ×2; C1734; J1644; J1100; J0690 ×2; J2405; J1170 ×2; J0665

== ENCOUNTER 2024-05-10 08:33 | Day surgery (SDC) | payer OTHER ==
[2024-05-09 09:15] VITALS: BMI 36.6
[~2024-05-10 08:33] MED LIST changes: -TRANEXAMIC 1,000 MG/100ML-NACL 1,000 MG in SALINE 1 100ML.BAG IVPB PRN
[2024-05-10] MEDS: IV FLUID CONTINUATION 1,000 ML IV ONE (08:50)
[2024-05-10 08:58] VITALS: TEMP 97.6
[2024-05-10] MEDS: LACTATED RINGERS 1,000 ML IV SCH (09:07)
[2024-05-10 09:09] LABS: Glucose,Whole Blood 119 mg/dL (70-110)
[2024-05-10] MEDS ORDERED: PROPOFOL 10 MG/ML 20 ML VIAL IV ONE (09:19)
--- NOTE | 2024-05-10 09:40 | P.PCN ---
Date of Procedure: 05/10/24 Procedure(s) Performed: BRIEF HISTORY: Patient is a 54-year-old pleasant white male scheduled for an elective colonoscopy as a part of evaluation by history of colon polyps. Last colonoscopy was 3 years ago. PROCEDURE PERFORMED: Colonoscopy with snare polypectomy. PREOPERATIVE DIAGNOSIS: History of colon polyp. IV sedation per Anesthesia. PROCEDURE: After informed consent was obtained, the patient, was brought into the endoscopy unit. IV sedation was administered by Anesthesia under continuous monitoring. Digital rectal examination was normal. Initially the Olympus CF-160 flexible video colonoscope was then inserted in the rectum, gradually advanced into the cecum without any difficulty. Careful examination was performed as the scope was gradually being withdrawn. Ileocecal valve and the appendiceal orifice were visualized and appeared normal. Prep was excellent. Mucosa of the cecum, a scending colon, transverse colon, descending colon, appeared normal. The sigmoid colon there was a 1 cm polyp removed by snare polypectomy. Scattered sigmoid diverticulosis seen. Rest sigmoid colon, and rectum appeared normal. Retroflexion was performed in the rectum and no lesions were seen. The patient tolerated the procedure well. IMPRESSION: 1 cm sigmoid colon biopsy cold snare polypectomy Scattered sigmoid diverticulosis RECOMMENDATIONS: Findings of this examination were discussed with the patient as well as his family. He was advised to follow with the biopsy results. The biopsy reveals adenoma he can have repeat colonoscopy in 3-5 years.
[2024-05-10 09:47] VITALS: RESP 16
[2024-05-10 09:58] VITALS: BP 129/86; PULSE 72
== END 2024-05-10 10:13 ==
LOC: ORWHC2ENDO 08:33
PROVIDERS: ATTEND Internal Medicine Gastroenterology
DX: Z12.11 Encounter for screening for malignant neoplasm of colon (principal); D12.5 Benign neoplasm of sigmoid colon; K57.30 Diverticulosis of large intestine without perforation or abscess without bleeding; Z79.890 Hormone replacement therapy; Z79.899 Other long term (current) drug therapy; Z79.84 Long term (current) use of oral hypoglycemic drugs
CPT/HCPCS: 88305; 45385; J2704